=== PATIENT | male | born 1945 | race Caucasian/White ===

== ENCOUNTER 2022-10-10 01:49 | Inpatient (IN) | payer OTHER ==
[2022-10-10] MEDS ORDERED: VANCOMYCIN 1,000 MG in DEXTROSE 5%-WATER - 250 ML IVPB ONE (02:54)
[2022-10-10] MEDS ORDERED: PIPERACILLIN/TAZOB 4.5 GM 4.5 GM in DEXTROSE 5%-WATER 100 ML IVPB ONE (02:54)
[2022-10-10] MEDS ORDERED: VANCOMYCIN 1 GRAM (PRE-DOCKED) 1,000 MG/250 ML BAG IVPB ONE (02:59)
[2022-10-10] MEDS ORDERED: PIPERACILLIN/TAZOB 4.5 GM 4.5 GM/100 ML BAG IVPB ONE (02:59)
[2022-10-10] MEDS ORDERED: ACETAMINOPHEN 500 MG TABLET (FP) PO ONE (03:06)
[2022-10-10] MEDS ORDERED: ACETAMINOPHEN 325 MG TABLET (FP) ONE (03:07)
[2022-10-10 03:14] LABS: BASO % 0.2 % (0-2.0); EOS % 0.9 % (0-4.5); HEMOGLOBIN 11.9 GM/dL (11.7-16.9); MCH 28.2 pg (25.7-33.7); MCHC 33.2 g/dl (32.0-35.9); MEAN PLT VOLUME 8.6 fl (7.5-11.1); MONO % 7.7 % (3.8-10.2); NEUT % 88.2 % (42.8-82.8); PLATELET COUNT 343 10^3/uL (134-434); RBC 4.23 M/mm3 (4.00-5.60); RDW 15.5 % (11.9-15.9); WHITE BLOOD COUNT 15.3 K/mm3 (4.0-10.0)
[2022-10-10 03:27] LABS: INR 1.31 (0.83-1.09); PROTHROMBIN TIME (PATIENT) 15.2 SEC (9.7-13.0)
[2022-10-10 03:29] LABS: CHLORIDE 106 mmol/L (98-107); SODIUM 137 mmol/L (136-145)
[2022-10-10 03:32] LABS: ALBUMIN 2.6 g/dl (3.4-5.0); CALCIUM 9.4 mg/dL (8.5-10.1); CO2 14 mmol/L (21-32); GLUCOSE,RANDOM 74 mg/dL (74-106)
[2022-10-10 03:35] LABS: SGOT/AST 41 U/L (15-37); SGPT/ALT 29 U/L (13-61)
[2022-10-10 03:37] LABS: BILIRUBIN,TOTAL 0.4 mg/dL (0.2-1); TOT PROT 6.5 g/dl (6.4-8.2)
[2022-10-10 03:39] LABS: ALK PHOS 116 U/L (45-117)
[2022-10-10] MEDS ORDERED: FOLIC ACID INJECTION - 1 MG, THIAMINE HCL 100 MG, MULTIVIT INJECTION ADULT 10 ML in SOD... IVPB ONE (04:00)
[2022-10-10 04:33] LABS: ANION GAP 17 MMOL/L (8-16); BLOOD UREA NITROGEN 108.9 mg/dL (7-18); POTASSIUM 7.4 mmol/L (3.5-5.1)
[2022-10-10] MEDS ORDERED: CALCIUM GLUCONATE 10% - 1,000 MG/10 ML VIAL IVPUSH ONE (04:36)
[2022-10-10] MEDS ORDERED: DEXTROSE 50%-WATER - 25 GM/50 ML VIAL IVPUSH ONE (04:36)
[2022-10-10] MEDS ORDERED: INSULIN REGULAR HUMAN 100 UNITS/ML *VIAL IVPUSH ONE (04:37)
[2022-10-10] MEDS ORDERED: DEXTROSE 50%-WATER 25 GM/50 ML DISP.SYRIN ONE (04:46)
[2022-10-10] MEDS ORDERED: CALCIUM GLUCONATE 10% - 1,000 MG/10 ML VIAL ONE (04:46)
[2022-10-10] MEDS ORDERED: SODIUM CHLORIDE 1,000 ML IV STA ×2 (05:43→17:31)
[2022-10-10] MEDS ORDERED: ALBUTEROL SO4 0.083% IH SOL 2.5 MG/3 ML VIAL.NEB. NEB ONE ×2 (05:54→06:12)
[2022-10-10] MEDS ORDERED: SODIUM ZIRCONIUM CYCLOSILICATE (LOKELMA) 10 GM PACKET ONE (05:54)
[2022-10-10] MEDS ORDERED: SODIUM ZIRCONIUM CYCLOSILICATE (LOKELMA) 5 GM PACKET PO SCH (06:00)
[2022-10-10] MEDS: ALBUTEROL SO4 2.5/IPRATROPIUM 0.5 INH SOL 3 ML VIAL.NEB. NEB SCH ×2 (06:10→06:17)
[2022-10-10] MEDS ORDERED: SODIUM CHLORIDE 0.9% 500 ML INFUS.BAG IV ONE (07:01)
[2022-10-10] MEDS ORDERED: SODIUM HYPOCHLORITE 0.5% 473 ML- BULK BOTTLE TP ONE (07:13)
[2022-10-10] MEDS ORDERED: SODIUM BICARBONATE 8.4% 50 MEQ/50 ML DISP.SYRIN IVPUSH ONE (07:16)
[2022-10-10] MEDS ORDERED: SODIUM BICARBONATE 8.4% 50 MEQ/50 ML DISP.SYRIN ONE (07:23)
[2022-10-10 07:55] LABS: VENOUS BASE EXCESS -10.7 mmol/L (-2-2); VENOUS O2 SATURATION 58.6 % (70-80); VENOUS PCO2 34.3 mmHg (38-52); VENOUS PH 7.267 (7.310-7.410)
[2022-10-10 08:23] LABS: CHLORIDE 108 mmol/L (98-107); SODIUM 135 mmol/L (136-145)
[2022-10-10 08:25] LABS: ALBUMIN 2.2 g/dl (3.4-5.0); CALCIUM 8.7 mg/dL (8.5-10.1); CO2 13 mmol/L (21-32); GLUCOSE,RANDOM 64 mg/dL (74-106)
[2022-10-10 08:27] LABS: SGOT/AST 34 U/L (15-37); SGPT/ALT 22 U/L (13-61)
[2022-10-10 08:30] LABS: BILIRUBIN,TOTAL 0.4 mg/dL (0.2-1); TOT PROT 5.5 g/dl (6.4-8.2)
[2022-10-10 08:31] LABS: ALK PHOS 97 U/L (45-117)
[2022-10-10] MEDS ORDERED: FENTANYL CITRATE/PF 50 MCG/ML VIAL ONE (08:31)
[2022-10-10 08:33] LABS: ANION GAP 14 MMOL/L (8-16); BLOOD UREA NITROGEN 107.1 mg/dL (7-18); CREATININE 9.7 mg/dL (0.55-1.3); POTASSIUM 6.4 mmol/L (3.5-5.1)
[2022-10-10] MEDS ORDERED: SODIUM HYPOCHLORITE 0.5% 473 ML- BULK BOTTLE TP SCH (10:00)
[2022-10-10] MEDS: PIPERACILLIN/TAZOB 4.5 GM 4.5 GM in DEXTROSE 5%-WATER 100 ML IVPB SCH ×2 (10:45→21:05)
[2022-10-10 10:51] LABS: EPI CELLS 22 /uL (0-25.1); HYALINE CASTS 1 /uL (0-3.1); URINE APPEARANCE CLOUDY; URINE BACTERIA 17 /uL (0-1359); URINE BILIRUBIN NEGATIVE (NEGATIVE); URINE COLOR DK YELLOW; URINE GLUCOSE (UA) NEGATIVE (NEGATIVE); URINE KETONE TRACE (NEGATIVE); URINE LEUK ESTERASE 1+ (NEGATIVE); URINE NITRITE NEGATIVE (NEGATIVE); URINE PROTEIN 1+ (NEGATIVE); URINE WBC 68 /uL (0-25.8)
[2022-10-10 11:43] LABS: URINE RBC 156.6 /uL (0-23.9); YEAST NEGATIVE (NEGATIVE)
[2022-10-10] MEDS ORDERED: HEPARIN NA (PORCINE) 5,000 UNITS/ML 1ML VIAL IVPUSH PRN ×2 (14:27)
[2022-10-10] MEDS: SODIUM BICARBONATE 8.4% - 50 MEQ in SODIUM CHLORIDE 0.45% 1,000 ML IV SCH ×2 (14:42→21:03)
[2022-10-10] MEDS: NYSTATIN POWDER 100,000 UNITS/GM - 15 GM TOPICAL POWDER TP SCH ×2 (14:43→21:03)
[2022-10-10] MEDS ORDERED: AMIODARONE HCL INJECTION 150 MG in DEXTROSE 5%-WATER - 100 ML IVPB ONE (15:30)
[2022-10-10 15:39] LABS: CHLORIDE 108 mmol/L (98-107); SODIUM 138 mmol/L (136-145)
[2022-10-10 15:41] LABS: CALCIUM 8.8 mg/dL (8.5-10.1); CO2 13 mmol/L (21-32); GLUCOSE,RANDOM 109 mg/dL (74-106); MAGNESIUM 2.4 mg/dL (1.8-2.4)
[2022-10-10] MEDS ORDERED: HYDROmorphone HCl 2 MG/ML VIAL IVPUSH STA (15:41)
[2022-10-10] MEDS ORDERED: AMIODARONE IN DEXTROSE,ISO-OSM 360 MG/200 ML BAG IV SCH (15:45)
[2022-10-10] MEDS ORDERED: AMIODARONE IN DEXTROSE,ISO-OSM 150 MG/100 ML BAG IVPB ONE (15:45)
[2022-10-10 15:48] LABS: ANION GAP 17 MMOL/L (8-16); BLOOD UREA NITROGEN 108.1 mg/dL (7-18)
[2022-10-10] MEDS: HEPARIN INFUSION - 25,000 UNITS/500 ML INFUS.BAG IVPB SCH (16:25)
[2022-10-10] MEDS ORDERED: SODIUM CHLORIDE 250 ML IV PRN (16:48)
[2022-10-10] MEDS: SODIUM ZIRCONIUM CYCLOSILICATE (LOKELMA) 5 GM PACKET PO SCH ×2 (19:22→21:01)
[2022-10-10] MEDS ORDERED: NOREPINEPHRINE BITARTRATE 4,000 MCG in DEXTROSE 5%-WATER - 496 ML IV SCH (20:00)
[2022-10-10] MEDS: AMIODARONE IN DEXTROSE,ISO-OSM 360 MG/200 ML BAG IV SCH (21:01)
[2022-10-10] MEDS ORDERED: PIPERACILLIN/TAZOB 4.5 GM 4.5 GM in DEXTROSE 5%-WATER 100 ML IVPB SCH (22:00)
[2022-10-11] MEDS: SODIUM BICARBONATE 8.4% - 50 MEQ in SODIUM CHLORIDE 0.45% 1,000 ML IV SCH ×4 (05:10→21:19)
[2022-10-11] MEDS: NYSTATIN POWDER 100,000 UNITS/GM - 15 GM TOPICAL POWDER TP SCH ×3 (06:09→21:19)
[2022-10-11 06:54] LABS: HEMATOCRIT 29.8 % (35.4-49); HEMOGLOBIN 10.1 GM/dL (11.7-16.9); MCH 28.9 pg (25.7-33.7); MCHC 33.9 g/dl (32.0-35.9); MEAN CELL VOLUME 85.4 fl (80-96); MEAN PLT VOLUME 9.1 fl (7.5-11.1); PLATELET COUNT 303 10^3/uL (134-434); RBC 3.49 M/mm3 (4.00-5.60); RDW 15.2 % (11.9-15.9)
[2022-10-11 07:18] LABS: POTASSIUM 5.1 mmol/L (3.5-5.1)
[2022-10-11 07:22] LABS: ALBUMIN 1.9 g/dl (3.4-5.0); CALCIUM 8.2 mg/dL (8.5-10.1)
[2022-10-11 07:24] LABS: CREATININE 6.9 mg/dL (0.55-1.3); PHOSPHOROUS 5.8 mg/dL (2.5-4.9)
[2022-10-11 07:26] LABS: BILIRUBIN,TOTAL 0.4 mg/dL (0.2-1); TOT PROT 5.2 g/dl (6.4-8.2)
[2022-10-11 07:56] LABS: BLOOD UREA NITROGEN 68.1 mg/dL (7-18)
[2022-10-11] MEDS: PANTOPRAZOLE SODIUM 40 MG VIAL IVPUSH SCH (09:47)
[2022-10-11] MEDS: NOREPINEPHRINE BITARTRATE/D5W 8 MG/250 ML BAG IVPB SCH (09:47)
[2022-10-11] MEDS: AMIODARONE IN DEXTROSE,ISO-OSM 360 MG/200 ML BAG IV SCH ×2 (09:47→21:22)
[2022-10-11] MEDS: SODIUM ZIRCONIUM CYCLOSILICATE (LOKELMA) 5 GM PACKET PO SCH ×2 (09:47→21:18)
[2022-10-11] MEDS: PIPERACILLIN/TAZOB 4.5 GM 4.5 GM in DEXTROSE 5%-WATER 100 ML IVPB SCH ×2 (09:48→21:18)
[2022-10-11] MEDS: HEPARIN INFUSION - 25,000 UNITS/500 ML INFUS.BAG IVPB SCH (14:42)
[2022-10-11 21:55] LABS: VENOUS BASE EXCESS -1.7 mmol/L (-2-2); VENOUS O2 SATURATION 76.1 % (70-80); VENOUS PCO2 39.5 mmHg (38-52); VENOUS PH 7.386 (7.310-7.410)
[2022-10-11 21:56] LABS: BASO % 0.6 % (0-2.0); EOS % 8.2 % (0-4.5); HEMATOCRIT 27.9 % (35.4-49); HEMOGLOBIN 9.4 GM/dL (11.7-16.9); LYMPH % 7.7 % (8-40); MCH 27.9 pg (25.7-33.7); MCHC 33.5 g/dl (32.0-35.9); MEAN CELL VOLUME 83.4 fl (80-96); MEAN PLT VOLUME 7.8 fl (7.5-11.1); MONO % 10.8 % (3.8-10.2); NEUT % 72.7 % (42.8-82.8); PLATELET COUNT 243 10^3/uL (134-434); RBC 3.35 M/mm3 (4.00-5.60); RDW 15.5 % (11.9-15.9)
[2022-10-11] MEDS ORDERED: SODIUM CHLORIDE 1,000 ML IV SCH (22:00)
[2022-10-11] MEDS ORDERED: ACETAMINOPHEN INJECTION 100 ML IVPB ONE (23:10)
[2022-10-11] MEDS: ACETAMINOPHEN 1000 MG/100 ML BAG IVPB PRN (23:25)
[2022-10-12] MEDS: BUDESONIDE/FORMETEROL FUMARATE 160/4.5 mcg INHALER IH SCH ×3 (02:44→21:48)
[2022-10-12] MEDS: SODIUM BICARBONATE 8.4% - 50 MEQ in SODIUM CHLORIDE 0.45% 1,000 ML IV SCH (07:18)
[2022-10-12] MEDS: NOREPINEPHRINE BITARTRATE/D5W 8 MG/250 ML BAG IVPB SCH (07:18)
[2022-10-12] MEDS: NYSTATIN POWDER 100,000 UNITS/GM - 15 GM TOPICAL POWDER TP SCH ×3 (07:19→21:47)
[2022-10-12] MEDS: SODIUM ZIRCONIUM CYCLOSILICATE (LOKELMA) 5 GM PACKET PO SCH ×2 (07:27→21:47)
[2022-10-12 07:40] LABS: HEMOGLOBIN 9.8 GM/dL (11.7-16.9); MCH 28.3 pg (25.7-33.7); MCHC 33.9 g/dl (32.0-35.9); MEAN CELL VOLUME 83.4 fl (80-96); MEAN PLT VOLUME 8.8 fl (7.5-11.1); PLATELET COUNT 267 10^3/uL (134-434); RBC 3.47 M/mm3 (4.00-5.60); RDW 15.2 % (11.9-15.9); WHITE BLOOD COUNT 11.5 K/mm3 (4.0-10.0)
[2022-10-12 07:55] LABS: INR 1.35 (0.83-1.09); PROTHROMBIN TIME (PATIENT) 15.6 SEC (9.7-13.0)
[2022-10-12 08:10] LABS: POTASSIUM 4.3 mmol/L (3.5-5.1)
[2022-10-12 08:15] LABS: ALBUMIN 1.6 g/dl (3.4-5.0); BLOOD UREA NITROGEN 64.4 mg/dL (7-18); CALCIUM 7.8 mg/dL (8.5-10.1); MAGNESIUM 1.8 mg/dL (1.8-2.4)
[2022-10-12 08:18] LABS: CREATININE 6.7 mg/dL (0.55-1.3)
[2022-10-12 08:20] LABS: BILIRUBIN,TOTAL 0.3 mg/dL (0.2-1); TOT PROT 4.9 g/dl (6.4-8.2)
[2022-10-12] MEDS: MUPIROCIN 2% TOPICAL OINTMENT FOR DECOLONIZATION NS SCH ×2 (09:34→21:46)
[2022-10-12] MEDS: PANTOPRAZOLE SODIUM 40 MG VIAL IVPUSH SCH (09:35)
[2022-10-12] MEDS: ACETAMINOPHEN 1000 MG/100 ML BAG IVPB PRN (09:35)
[2022-10-12] MEDS ORDERED: VANCOMYCIN/WATER FOR INJ (PEG) 1,000 MG/200 ML BAG IVPB ONE (10:42)
[2022-10-12] MEDS ORDERED: SODIUM CHLORIDE 1,000 ML IV SCH (11:45)
[2022-10-12] MEDS: PIPERACILLIN/TAZOB 2.25 GM 2.25 GM in DEXTROSE 5%-WATER - 50 ML IVPB SCH ×2 (11:52→17:49)
[2022-10-12] MEDS: AMIODARONE IN DEXTROSE,ISO-OSM 360 MG/200 ML BAG IV SCH ×2 (11:54→21:47)
[2022-10-12] MEDS: SODIUM CHLORIDE 0.45% 1,000 ML IV SCH (15:50)
[2022-10-12] MEDS: HEPARIN INFUSION - 25,000 UNITS/500 ML INFUS.BAG IVPB SCH (17:51)
[2022-10-12] MEDS ORDERED: CHLORHEXIDINE GLUCONATE 4% CLEANSER FOR DECOLONIZATION TP SCH (22:00)
[2022-10-13] MEDS: PIPERACILLIN/TAZOB 2.25 GM 2.25 GM in DEXTROSE 5%-WATER - 50 ML IVPB SCH ×3 (01:21→17:03)
[2022-10-13] MEDS: AMIODARONE IN DEXTROSE,ISO-OSM 360 MG/200 ML BAG IV SCH (03:24)
[2022-10-13] MEDS: SODIUM CHLORIDE 0.45% 1,000 ML IV SCH ×3 (06:10→21:34)
[2022-10-13] MEDS: NYSTATIN POWDER 100,000 UNITS/GM - 15 GM TOPICAL POWDER TP SCH ×3 (06:34→21:40)
[2022-10-13] MEDS: NOREPINEPHRINE BITARTRATE/D5W 8 MG/250 ML BAG IVPB SCH (06:35)
[2022-10-13 08:02] LABS: POTASSIUM 3.5 mmol/L (3.5-5.1)
[2022-10-13 08:11] LABS: CREATININE 6.2 mg/dL (0.55-1.3); PHOSPHOROUS 6.7 mg/dL (2.5-4.9)
[2022-10-13 08:12] LABS: BILIRUBIN,TOTAL 0.2 mg/dL (0.2-1)
[2022-10-13 08:13] LABS: ALBUMIN 1.6 g/dl (3.4-5.0); MAGNESIUM 1.7 mg/dL (1.8-2.4); TOT PROT 4.7 g/dl (6.4-8.2)
[2022-10-13 08:18] LABS: BASO % 0.5 % (0-2.0); EOS % 7.8 % (0-4.5); HEMATOCRIT 29.1 % (35.4-49); HEMOGLOBIN 9.6 GM/dL (11.7-16.9); LYMPH % 7.1 % (8-40); MCH 28.2 pg (25.7-33.7); MCHC 33.1 g/dl (32.0-35.9); MEAN CELL VOLUME 85.2 fl (80-96); MEAN PLT VOLUME 9.1 fl (7.5-11.1); MONO % 13.5 % (3.8-10.2); NEUT % 71.1 % (42.8-82.8); PLATELET COUNT 247 10^3/uL (134-434); RBC 3.42 M/mm3 (4.00-5.60); RDW 15.4 % (11.9-15.9); WHITE BLOOD COUNT 9.5 K/mm3 (4.0-10.0)
[2022-10-13] MEDS: SODIUM ZIRCONIUM CYCLOSILICATE (LOKELMA) 5 GM PACKET PO SCH ×2 (08:54→21:40)
[2022-10-13] MEDS: PANTOPRAZOLE SODIUM 40 MG VIAL IVPUSH SCH (09:54)
[2022-10-13] MEDS: BUDESONIDE/FORMETEROL FUMARATE 160/4.5 mcg INHALER IH SCH ×2 (10:27→21:40)
[2022-10-13] MEDS: MUPIROCIN 2% TOPICAL OINTMENT FOR DECOLONIZATION NS SCH ×2 (10:27→21:39)
[2022-10-13] MEDS ORDERED: AMIODARONE HCL 200 MG TABLET PO SCH ×2 (10:45→22:00)
[2022-10-13] MEDS ORDERED: VANCOMYCIN/WATER FOR INJ (PEG) 1,000 MG/200 ML BAG IVPB ONE (15:00)
[2022-10-13] MEDS: HEPARIN INFUSION - 25,000 UNITS/500 ML INFUS.BAG IVPB SCH ×2 (15:36→19:30)
[2022-10-13 17:01] LABS: HEMATOCRIT 29.9 % (35.4-49); MCH 28.2 pg (25.7-33.7); MCHC 33.5 g/dl (32.0-35.9); MEAN CELL VOLUME 84.1 fl (80-96); MEAN PLT VOLUME 8.5 fl (7.5-11.1); PLATELET COUNT 263 10^3/uL (134-434); RBC 3.55 M/mm3 (4.00-5.60); RDW 15.4 % (11.9-15.9); WHITE BLOOD COUNT 8.8 K/mm3 (4.0-10.0)
[2022-10-13] MEDS ORDERED: BUPIVACAINE HCL/PF 0.5% (5MG/ML) 10 ML VIAL ONE (17:40)
[2022-10-13] MEDS ORDERED: VANCOMYCIN 1,000 MG VIAL (RESTRICTED TO ID ONLY) ONE (17:41)
[2022-10-13] MEDS ORDERED: PROPOFOL 20 ML ONE (17:52)
[2022-10-13] MEDS ORDERED: MIDAZOLAM HCL 2 MG/2 ML SINGLE DOSE VIAL ONE (17:53)
[2022-10-13] MEDS ORDERED: LIDOCAINE HCL 1%, 10 MG/ML (20ML VIAL) ONE (18:18)
[2022-10-13] MEDS ORDERED: PROPOFOL 40 ML ONE (18:22)
[2022-10-13] MEDS ORDERED: LIDOCAINE HCL 1%, 10 MG/ML (20ML VIAL) INF ONE (18:24)
[2022-10-13] MEDS ORDERED: VANCOMYCIN 1,000 MG VIAL (RESTRICTED TO ID ONLY) IVPB ONE (18:29)
[2022-10-13] MEDS ORDERED: HEPARIN NA (PORCINE) 5,000 UNITS/ML 1ML VIAL IVPUSH PRN (18:50)
[2022-10-13] MEDS ORDERED: PROMETHAZINE HCL 25 MG/1 ML VIAL IVPB PRN (18:55)
[2022-10-13] MEDS ORDERED: ONDANSETRON 4 MG/2 ML VIAL IVPUSH PRN (18:55)
[2022-10-13] MEDS ORDERED: LACTATED RINGERS SOLUTION 1,000 ML IV SCH (19:00)
[2022-10-13] MEDS: HEPARIN NA (PORCINE) 5,000 UNITS/ML 1ML VIAL IVPUSH PRN ×2 (19:30→19:52)
[2022-10-13] MEDS ORDERED: HEPARIN NA (PORCINE) 5,000 UNITS/ML 1ML VIAL ONE (19:43)
[2022-10-13] MEDS ORDERED: HEPARIN INFUSION - 25,000 UNITS/500 ML INFUS.BAG IVPB ONE (19:43)
[2022-10-13] MEDS: COLLAGENASE CLOSTRIDIUM HIST. 30 GRAMS TUBE TP SCH (21:34)
[2022-10-13] MEDS: AMIODARONE HCL 200 MG TABLET PO SCH (21:39)
[2022-10-13] MEDS: CHLORHEXIDINE GLUCONATE 4% CLEANSER FOR DECOLONIZATION TP SCH (21:40)
[2022-10-14] MEDS: PIPERACILLIN/TAZOB 2.25 GM 2.25 GM in DEXTROSE 5%-WATER - 50 ML IVPB SCH ×3 (02:19→18:16)
[2022-10-14 02:37] LABS: INR 1.31 (0.83-1.09); PROTHROMBIN TIME (PATIENT) 15.2 SEC (9.7-13.0)
[2022-10-14 02:40] LABS: ACTIVATED PTT 36.1 SECONDS (25.2-36.5)
[2022-10-14] MEDS: HEPARIN NA (PORCINE) 5,000 UNITS/ML 1ML VIAL IVPUSH PRN (03:00)
[2022-10-14] MEDS: NYSTATIN POWDER 100,000 UNITS/GM - 15 GM TOPICAL POWDER TP SCH ×3 (06:08→22:04)
[2022-10-14 07:29] LABS: HEMATOCRIT 30.2 % (35.4-49); HEMOGLOBIN 10.1 GM/dL (11.7-16.9); MCH 28.5 pg (25.7-33.7); MCHC 33.4 g/dl (32.0-35.9); MEAN CELL VOLUME 85.4 fl (80-96); MEAN PLT VOLUME 8.6 fl (7.5-11.1); PLATELET COUNT 293 10^3/uL (134-434); RBC 3.54 M/mm3 (4.00-5.60); RDW 15.4 % (11.9-15.9); WHITE BLOOD COUNT 8.4 K/mm3 (4.0-10.0)
[2022-10-14] MEDS: MUPIROCIN 2% TOPICAL OINTMENT FOR DECOLONIZATION NS SCH ×2 (10:12→21:30)
[2022-10-14] MEDS: AMIODARONE HCL 200 MG TABLET PO SCH (10:12)
[2022-10-14] MEDS: SODIUM ZIRCONIUM CYCLOSILICATE (LOKELMA) 5 GM PACKET PO SCH (10:13)
[2022-10-14] MEDS: PANTOPRAZOLE SODIUM 40 MG VIAL IVPUSH SCH (10:13)
[2022-10-14] MEDS: COLLAGENASE CLOSTRIDIUM HIST. 30 GRAMS TUBE TP SCH (10:14)
[2022-10-14] MEDS: SODIUM CHLORIDE 0.45% 1,000 ML IV SCH ×2 (10:14→22:02)
[2022-10-14] MEDS: BUDESONIDE/FORMETEROL FUMARATE 160/4.5 mcg INHALER IH SCH ×2 (10:24→22:03)
[2022-10-14 12:35] LABS: POTASSIUM 3.1 mmol/L (3.5-5.1)
[2022-10-14 12:37] LABS: ALBUMIN 1.6 g/dl (3.4-5.0); BLOOD UREA NITROGEN 52.5 mg/dL (7-18); CALCIUM 7.9 mg/dL (8.5-10.1); MAGNESIUM 1.6 mg/dL (1.8-2.4)
[2022-10-14 12:40] LABS: CREATININE 4.9 mg/dL (0.55-1.3)
[2022-10-14 12:42] LABS: BILIRUBIN,TOTAL 0.2 mg/dL (0.2-1); TOT PROT 4.9 g/dl (6.4-8.2)
[2022-10-14] MEDS ORDERED: POTASSIUM CHLORIDE TABS 20 MEQ TABLET.ER (FP) PO ONE (14:45)
[2022-10-14] MEDS ORDERED: MAGNESIUM 2GM/50ML STERILE WATER IVPB IVPB ONE (14:45)
[2022-10-14] MEDS: INSULIN SLIDING SCALE (NOVOLOG) 1 VIAL SQ SCH (18:16)
[2022-10-14] MEDS: HEPARIN INFUSION - 25,000 UNITS/500 ML INFUS.BAG IVPB SCH (18:17)
[2022-10-14] MEDS: WARFARIN NA 5 MG TABLET PO SCH (18:53)
[2022-10-14] MEDS: CHLORHEXIDINE GLUCONATE 4% CLEANSER FOR DECOLONIZATION TP SCH (22:03)
[2022-10-14] MEDS: METOPROLOL TARTRATE 25 MG TABLET (FP) PO SCH (22:03)
[2022-10-15] MEDS: PIPERACILLIN/TAZOB 2.25 GM 2.25 GM in DEXTROSE 5%-WATER - 50 ML IVPB SCH ×3 (01:03→17:28)
[2022-10-15] MEDS: NYSTATIN POWDER 100,000 UNITS/GM - 15 GM TOPICAL POWDER TP SCH ×3 (06:29→21:22)
[2022-10-15] MEDS: INSULIN SLIDING SCALE (NOVOLOG) 1 VIAL SQ SCH ×3 (06:30→16:34)
[2022-10-15 07:22] LABS: INR 1.26 (0.83-1.09); PROTHROMBIN TIME (PATIENT) 14.6 SEC (9.7-13.0)
[2022-10-15 07:25] LABS: ACTIVATED PTT 53.5 SECONDS (25.2-36.5)
[2022-10-15 07:30] LABS: HEMATOCRIT 29.6 % (35.4-49); MCH 28.9 pg (25.7-33.7); MCHC 33.7 g/dl (32.0-35.9); MEAN CELL VOLUME 85.9 fl (80-96); MEAN PLT VOLUME 8.8 fl (7.5-11.1); PLATELET COUNT 297 10^3/uL (134-434); RBC 3.44 M/mm3 (4.00-5.60); RDW 15.5 % (11.9-15.9); WHITE BLOOD COUNT 7.3 K/mm3 (4.0-10.0)
[2022-10-15 07:41] LABS: POTASSIUM 3.2 mmol/L (3.5-5.1)
[2022-10-15 07:43] LABS: ALBUMIN 1.7 g/dl (3.4-5.0); BLOOD UREA NITROGEN 42.6 mg/dL (7-18); MAGNESIUM 1.7 mg/dL (1.8-2.4)
[2022-10-15 07:46] LABS: CREATININE 4.1 mg/dL (0.55-1.3); PHOSPHOROUS 4.4 mg/dL (2.5-4.9)
[2022-10-15 07:48] LABS: BILIRUBIN,TOTAL 0.2 mg/dL (0.2-1)
[2022-10-15] MEDS: PANTOPRAZOLE SODIUM 40 MG VIAL IVPUSH SCH (09:19)
[2022-10-15] MEDS: METOPROLOL TARTRATE 25 MG TABLET (FP) PO SCH ×2 (09:19→21:22)
[2022-10-15] MEDS: BUDESONIDE/FORMETEROL FUMARATE 160/4.5 mcg INHALER IH SCH ×2 (09:20→21:22)
[2022-10-15] MEDS: MUPIROCIN 2% TOPICAL OINTMENT FOR DECOLONIZATION NS SCH ×2 (09:20→21:22)
[2022-10-15] MEDS ORDERED: MAGNESIUM 2GM/50ML STERILE WATER IVPB IVPB ONE (09:59)
[2022-10-15] MEDS ORDERED: AMIODARONE HCL 200 MG TABLET PO SCH ×3 (10:00)
[2022-10-15] MEDS ORDERED: MAGNESIUM OXIDE 400 MG TABLET (FP) PO ONE (10:15)
[2022-10-15] MEDS ORDERED: POTASSIUM CHLORIDE ORAL LIQUID 20 MEQ/15 ML PO ONE ×2 (10:15→15:18)
[2022-10-15] MEDS: SODIUM CHLORIDE 0.45% 1,000 ML IV SCH (10:16)
[2022-10-15] MEDS ORDERED: INSULIN (NOVOLOG) ASPART 100 UNITS/ML 10ML VIAL ONE ×2 (11:09→16:33)
[2022-10-15] MEDS: COLLAGENASE CLOSTRIDIUM HIST. 30 GRAMS TUBE TP SCH (13:49)
[2022-10-15] MEDS: HEPARIN INFUSION - 25,000 UNITS/500 ML INFUS.BAG IVPB SCH ×2 (14:47→20:33)
[2022-10-15] MEDS ORDERED: VANCOMYCIN/WATER FOR INJ (PEG) 1,000 MG/200 ML BAG IVPB ONE (15:09)
[2022-10-15] MEDS: WARFARIN NA 5 MG TABLET PO SCH (17:28)
[2022-10-15] MEDS: CHLORHEXIDINE GLUCONATE 4% CLEANSER FOR DECOLONIZATION TP SCH (21:22)
[2022-10-16] MEDS: PIPERACILLIN/TAZOB 2.25 GM 2.25 GM in DEXTROSE 5%-WATER - 50 ML IVPB SCH ×2 (01:45→09:03)
[2022-10-16] MEDS: NYSTATIN POWDER 100,000 UNITS/GM - 15 GM TOPICAL POWDER TP SCH ×3 (05:49→21:10)
[2022-10-16] MEDS: INSULIN SLIDING SCALE (NOVOLOG) 1 VIAL SQ SCH ×3 (06:05→16:35)
[2022-10-16 07:39] LABS: HEMATOCRIT 29.3 % (35.4-49); MCH 28.9 pg (25.7-33.7); MCHC 34.2 g/dl (32.0-35.9); MEAN CELL VOLUME 84.5 fl (80-96); MEAN PLT VOLUME 8.1 fl (7.5-11.1); PLATELET COUNT 287 10^3/uL (134-434); RBC 3.47 M/mm3 (4.00-5.60); RDW 15.5 % (11.9-15.9); WHITE BLOOD COUNT 8.7 K/mm3 (4.0-10.0)
[2022-10-16 07:43] LABS: INR 1.92 (0.83-1.09); PROTHROMBIN TIME (PATIENT) 22.1 SEC (9.7-13.0)
[2022-10-16 07:44] LABS: ACTIVATED PTT 67.8 SECONDS (25.2-36.5)
[2022-10-16 07:55] LABS: POTASSIUM 3.8 mmol/L (3.5-5.1)
[2022-10-16 08:27] LABS: BILIRUBIN,TOTAL 0.3 mg/dL (0.2-1)
[2022-10-16 08:28] LABS: ALBUMIN 1.8 g/dl (3.4-5.0); BLOOD UREA NITROGEN 34.8 mg/dL (7-18); CALCIUM 8.2 mg/dL (8.5-10.1); MAGNESIUM 1.8 mg/dL (1.8-2.4)
[2022-10-16 08:30] LABS: CREATININE 3.4 mg/dL (0.55-1.3); PHOSPHOROUS 3.6 mg/dL (2.5-4.9)
[2022-10-16 08:31] LABS: TOT PROT 5.2 g/dl (6.4-8.2)
[2022-10-16] MEDS: SODIUM CHLORIDE 0.45% 1,000 ML IV SCH (09:03)
[2022-10-16] MEDS: PANTOPRAZOLE SODIUM 40 MG VIAL IVPUSH SCH (09:03)
[2022-10-16] MEDS: BUDESONIDE/FORMETEROL FUMARATE 160/4.5 mcg INHALER IH SCH ×2 (09:04→21:10)
[2022-10-16] MEDS: MUPIROCIN 2% TOPICAL OINTMENT FOR DECOLONIZATION NS SCH ×2 (09:04→21:10)
[2022-10-16] MEDS: METOPROLOL TARTRATE 25 MG TABLET (FP) PO SCH ×2 (09:04→21:10)
[2022-10-16] MEDS: HEPARIN INFUSION - 25,000 UNITS/500 ML INFUS.BAG IVPB SCH ×2 (10:37→20:43)
[2022-10-16] MEDS: MEROPENEM 1 GM in DEXTROSE 5%-WATER 100 ML IVPB SCH (13:42)
[2022-10-16] MEDS: COLLAGENASE CLOSTRIDIUM HIST. 30 GRAMS TUBE TP SCH (13:42)
[2022-10-16 14:57] VITALS: BMI 38.3
[2022-10-16] MEDS ORDERED: INSULIN (NOVOLOG) ASPART 100 UNITS/ML 10ML VIAL ONE (16:21)
[2022-10-16] MEDS ORDERED: SODIUM THIOSULFATE 12.5 GM/50 ML VIAL IVPB ONE (16:47)
[2022-10-16] MEDS: AMINO ACIDS/PROTEIN HYDROLYS 30 ML LIQUID.PKT PO SCH (17:33)
[2022-10-16] MEDS: WARFARIN NA 5 MG TABLET PO SCH (17:33)
[2022-10-16] MEDS ORDERED: WARFARIN NA 7.5 MG TABLET PO SCH (18:00)
[2022-10-16] MEDS: CHLORHEXIDINE GLUCONATE 4% CLEANSER FOR DECOLONIZATION TP SCH (21:10)
[2022-10-17] MEDS: MEROPENEM 1 GM in DEXTROSE 5%-WATER 100 ML IVPB SCH ×2 (00:35→12:47)
[2022-10-17] MEDS: NYSTATIN POWDER 100,000 UNITS/GM - 15 GM TOPICAL POWDER TP SCH ×3 (06:31→21:17)
[2022-10-17] MEDS: INSULIN SLIDING SCALE (NOVOLOG) 1 VIAL SQ SCH ×3 (06:43→16:45)
[2022-10-17 08:10] LABS: HEMATOCRIT 31.1 % (35.4-49); HEMOGLOBIN 10.1 GM/dL (11.7-16.9); MCH 28.2 pg (25.7-33.7); MCHC 32.6 g/dl (32.0-35.9); MEAN CELL VOLUME 86.6 fl (80-96); MEAN PLT VOLUME 8.5 fl (7.5-11.1); PLATELET COUNT 317 10^3/uL (134-434); RBC 3.59 M/mm3 (4.00-5.60); RDW 15.6 % (11.9-15.9); WHITE BLOOD COUNT 9.2 K/mm3 (4.0-10.0)
[2022-10-17] MEDS: AMINO ACIDS/PROTEIN HYDROLYS 30 ML LIQUID.PKT PO SCH ×2 (08:32→16:45)
[2022-10-17 08:41] LABS: INR 2.32 (0.83-1.09); PROTHROMBIN TIME (PATIENT) 26.7 SEC (9.7-13.0)
[2022-10-17] MEDS: HEPARIN INFUSION - 25,000 UNITS/500 ML INFUS.BAG IVPB SCH (08:45)
[2022-10-17 09:08] LABS: ALBUMIN 1.9 g/dl (3.4-5.0); BILIRUBIN,TOTAL 0.1 mg/dL (0.2-1); BLOOD UREA NITROGEN 30.5 mg/dL (7-18); CALCIUM 8.6 mg/dL (8.5-10.1); CREATININE 2.7 mg/dL (0.55-1.3); POTASSIUM 3.5 mmol/L (3.5-5.1); TOT PROT 5.4 g/dl (6.4-8.2)
[2022-10-17] MEDS: PANTOPRAZOLE SODIUM 40 MG VIAL IVPUSH SCH (09:24)
[2022-10-17] MEDS: METOPROLOL TARTRATE 25 MG TABLET (FP) PO SCH ×2 (09:24→21:17)
[2022-10-17] MEDS: BUDESONIDE/FORMETEROL FUMARATE 160/4.5 mcg INHALER IH SCH ×2 (09:24→21:17)
[2022-10-17] MEDS: SODIUM CHLORIDE 0.45% 1,000 ML IV SCH (09:25)
[2022-10-17] MEDS: COLLAGENASE CLOSTRIDIUM HIST. 30 GRAMS TUBE TP SCH (10:29)
[2022-10-17] MEDS ORDERED: INSULIN (NOVOLOG) ASPART 100 UNITS/ML 10ML VIAL ONE ×2 (11:11→16:32)
[2022-10-17] MEDS: WARFARIN NA 5 MG TABLET PO SCH (17:01)
[2022-10-17] MEDS: CHLORHEXIDINE GLUCONATE 4% CLEANSER FOR DECOLONIZATION TP SCH (21:17)
[2022-10-18] MEDS: MEROPENEM 1 GM in DEXTROSE 5%-WATER 100 ML IVPB SCH ×2 (01:27→12:23)
[2022-10-18] MEDS: SODIUM CHLORIDE 0.45% 1,000 ML IV SCH ×3 (01:32→17:39)
[2022-10-18] MEDS: INSULIN SLIDING SCALE (NOVOLOG) 1 VIAL SQ SCH ×3 (06:09→17:26)
[2022-10-18] MEDS: NYSTATIN POWDER 100,000 UNITS/GM - 15 GM TOPICAL POWDER TP SCH ×2 (06:09→13:01)
[2022-10-18 07:43] LABS: HEMOGLOBIN 9.6 GM/dL (11.7-16.9); MCH 28.4 pg (25.7-33.7); MCHC 33.3 g/dl (32.0-35.9); MEAN CELL VOLUME 85.4 fl (80-96); MEAN PLT VOLUME 7.4 fl (7.5-11.1); PLATELET COUNT 289 10^3/uL (134-434); RBC 3.39 M/mm3 (4.00-5.60); RDW 15.7 % (11.9-15.9); WHITE BLOOD COUNT 8.5 K/mm3 (4.0-10.0)
[2022-10-18 07:51] LABS: INR 1.99 (0.83-1.09); PROTHROMBIN TIME (PATIENT) 22.9 SEC (9.7-13.0)
[2022-10-18 07:59] LABS: POTASSIUM 3.5 mmol/L (3.5-5.1)
[2022-10-18 08:08] LABS: ALBUMIN 1.8 g/dl (3.4-5.0); BLOOD UREA NITROGEN 27.3 mg/dL (7-18); CALCIUM 8.3 mg/dL (8.5-10.1)
[2022-10-18 08:09] LABS: MAGNESIUM 1.5 mg/dL (1.8-2.4)
[2022-10-18 08:11] LABS: CREATININE 2.1 mg/dL (0.55-1.3); PHOSPHOROUS 3.9 mg/dL (2.5-4.9)
[2022-10-18 08:13] LABS: BILIRUBIN,TOTAL 0.2 mg/dL (0.2-1); TOT PROT 5.1 g/dl (6.4-8.2)
[2022-10-18] MEDS: BUDESONIDE/FORMETEROL FUMARATE 160/4.5 mcg INHALER IH SCH ×2 (09:25→22:41)
[2022-10-18] MEDS: AMINO ACIDS/PROTEIN HYDROLYS 30 ML LIQUID.PKT PO SCH ×2 (09:25→17:58)
[2022-10-18] MEDS: PANTOPRAZOLE SODIUM 40 MG VIAL IVPUSH SCH (09:25)
[2022-10-18] MEDS: METOPROLOL TARTRATE 25 MG TABLET (FP) PO SCH ×2 (09:25→22:38)
[2022-10-18] MEDS ORDERED: INSULIN (NOVOLOG) ASPART 100 UNITS/ML 10ML VIAL ONE (10:43)
[2022-10-18] MEDS: COLLAGENASE CLOSTRIDIUM HIST. 30 GRAMS TUBE TP SCH (10:44)
[2022-10-18] MEDS ORDERED: MAGNESIUM OXIDE 400 MG TABLET (FP) PO ONE (12:15)
[2022-10-18] MEDS: WARFARIN NA 5 MG TABLET PO SCH (17:58)
[2022-10-19] MEDS: MEROPENEM 1 GM in DEXTROSE 5%-WATER 100 ML IVPB SCH ×2 (01:18→12:44)
[2022-10-19] MEDS: NYSTATIN POWDER 100,000 UNITS/GM - 15 GM TOPICAL POWDER TP SCH ×4 (01:18→22:40)
[2022-10-19] MEDS: INSULIN SLIDING SCALE (NOVOLOG) 1 VIAL SQ SCH ×4 (06:32→16:30)
[2022-10-19] MEDS: AMINO ACIDS/PROTEIN HYDROLYS 30 ML LIQUID.PKT PO SCH ×2 (08:29→16:44)
[2022-10-19] MEDS: METOPROLOL TARTRATE 25 MG TABLET (FP) PO SCH ×2 (09:15→22:00)
[2022-10-19] MEDS: PANTOPRAZOLE SODIUM 40 MG VIAL IVPUSH SCH (09:16)
[2022-10-19] MEDS: SODIUM CHLORIDE 0.45% 1,000 ML IV SCH ×3 (09:17→13:15)
[2022-10-19] MEDS: BUDESONIDE/FORMETEROL FUMARATE 160/4.5 mcg INHALER IH SCH ×2 (09:22→22:01)
[2022-10-19] MEDS: COLLAGENASE CLOSTRIDIUM HIST. 30 GRAMS TUBE TP SCH (09:22)
[2022-10-19 10:32] LABS: HEMOGLOBIN 10.4 GM/dL (11.7-16.9); MCH 28.9 pg (25.7-33.7); MCHC 33.6 g/dl (32.0-35.9); MEAN CELL VOLUME 86.1 fl (80-96); MEAN PLT VOLUME 7.7 fl (7.5-11.1); PLATELET COUNT 310 10^3/uL (134-434); RDW 15.7 % (11.9-15.9); WHITE BLOOD COUNT 9.8 K/mm3 (4.0-10.0)
[2022-10-19 10:34] LABS: INR 1.82 (0.83-1.09)
[2022-10-19 10:36] LABS: ACTIVATED PTT 35.5 SECONDS (25.2-36.5)
[2022-10-19 10:52] LABS: POTASSIUM 3.5 mmol/L (3.5-5.1)
[2022-10-19 10:58] LABS: CALCIUM 8.5 mg/dL (8.5-10.1)
[2022-10-19 10:59] LABS: BLOOD UREA NITROGEN 29.8 mg/dL (7-18); MAGNESIUM 1.7 mg/dL (1.8-2.4)
[2022-10-19 11:01] LABS: PHOSPHOROUS 3.4 mg/dL (2.5-4.9)
[2022-10-19 11:02] LABS: CREATININE 1.8 mg/dL (0.55-1.3)
[2022-10-19] MEDS ORDERED: MAGNESIUM OXIDE 400 MG TABLET (FP) PO ONE (13:15)
[2022-10-19] MEDS ORDERED: POTASSIUM CHLORIDE ORAL LIQUID 20 MEQ/15 ML PO ONE (13:15)
[2022-10-19] MEDS ORDERED: SODIUM THIOSULFATE 12.5 GM/50 ML VIAL IVPB ONE (14:00)
[2022-10-19] MEDS: WARFARIN NA 5 MG TABLET PO SCH (17:27)
[2022-10-20] MEDS: MEROPENEM 1 GM in DEXTROSE 5%-WATER 100 ML IVPB SCH ×2 (00:57→12:29)
[2022-10-20] MEDS: NYSTATIN POWDER 100,000 UNITS/GM - 15 GM TOPICAL POWDER TP SCH ×3 (05:54→21:26)
[2022-10-20] MEDS: INSULIN SLIDING SCALE (NOVOLOG) 1 VIAL SQ SCH ×3 (06:17→16:23)
[2022-10-20] MEDS: AMINO ACIDS/PROTEIN HYDROLYS 30 ML LIQUID.PKT PO SCH ×2 (09:07→16:34)
[2022-10-20] MEDS: METOPROLOL TARTRATE 25 MG TABLET (FP) PO SCH ×2 (09:08→21:22)
[2022-10-20] MEDS: PANTOPRAZOLE SODIUM 40 MG VIAL IVPUSH SCH (09:19)
[2022-10-20] MEDS: BUDESONIDE/FORMETEROL FUMARATE 160/4.5 mcg INHALER IH SCH ×2 (09:19→21:25)
[2022-10-20 09:42] LABS: INR 1.95 (0.83-1.09); PROTHROMBIN TIME (PATIENT) 22.5 SEC (9.7-13.0)
[2022-10-20 09:44] LABS: BASO % 0.4 % (0-2.0); HEMATOCRIT 31.1 % (35.4-49); LYMPH % 10.1 % (8-40); MEAN CELL VOLUME 87.4 fl (80-96); MEAN PLT VOLUME 8.3 fl (7.5-11.1); MONO % 11.6 % (3.8-10.2); NEUT % 73.9 % (42.8-82.8); PLATELET COUNT 325 10^3/uL (134-434); RBC 3.56 M/mm3 (4.00-5.60); RDW 15.4 % (11.9-15.9); WHITE BLOOD COUNT 10.1 K/mm3 (4.0-10.0)
[2022-10-20 09:52] LABS: POTASSIUM 3.6 mmol/L (3.5-5.1)
[2022-10-20 10:02] LABS: CREATININE 1.5 mg/dL (0.55-1.3); PHOSPHOROUS 3.1 mg/dL (2.5-4.9)
[2022-10-20 10:03] LABS: BILIRUBIN,TOTAL 0.3 mg/dL (0.2-1); BLOOD UREA NITROGEN 26.5 mg/dL (7-18); CALCIUM 8.3 mg/dL (8.5-10.1); MAGNESIUM 1.6 mg/dL (1.8-2.4)
[2022-10-20 10:04] LABS: ALBUMIN 1.9 g/dl (3.4-5.0); TOT PROT 5.5 g/dl (6.4-8.2)
[2022-10-20] MEDS: COLLAGENASE CLOSTRIDIUM HIST. 30 GRAMS TUBE TP SCH (11:13)
[2022-10-20] MEDS ORDERED: MAGNESIUM 2GM/50ML STERILE WATER IVPB IVPB ONE (14:00)
[2022-10-20] MEDS: SODIUM CHLORIDE 0.45% 1,000 ML IV SCH (14:05)
[2022-10-20] MEDS: oxyCODONE HCL 5 MG TABLET PO PRN (14:53)
[2022-10-20] MEDS: WARFARIN NA 5 MG TABLET PO SCH (18:06)
[2022-10-21] MEDS: MEROPENEM 1 GM in DEXTROSE 5%-WATER 100 ML IVPB SCH ×2 (01:00→13:52)
[2022-10-21] MEDS: NYSTATIN POWDER 100,000 UNITS/GM - 15 GM TOPICAL POWDER TP SCH ×3 (06:24→22:31)
[2022-10-21] MEDS: INSULIN SLIDING SCALE (NOVOLOG) 1 VIAL SQ SCH ×3 (06:24→16:46)
[2022-10-21] MEDS: AMINO ACIDS/PROTEIN HYDROLYS 30 ML LIQUID.PKT PO SCH ×2 (08:51→16:46)
[2022-10-21 10:02] LABS: BASO % 0.7 % (0-2.0); EOS % 2.5 % (0-4.5); HEMATOCRIT 29.1 % (35.4-49); HEMOGLOBIN 9.7 GM/dL (11.7-16.9); LYMPH % 8.7 % (8-40); MCH 28.4 pg (25.7-33.7); MCHC 33.4 g/dl (32.0-35.9); MEAN PLT VOLUME 8.1 fl (7.5-11.1); MONO % 9.9 % (3.8-10.2); NEUT % 78.2 % (42.8-82.8); PLATELET COUNT 309 10^3/uL (134-434); RBC 3.42 M/mm3 (4.00-5.60); RDW 15.8 % (11.9-15.9); WHITE BLOOD COUNT 10.2 K/mm3 (4.0-10.0)
[2022-10-21 10:23] LABS: POTASSIUM 3.4 mmol/L (3.5-5.1)
[2022-10-21 10:26] LABS: CALCIUM 8.8 mg/dL (8.5-10.1)
[2022-10-21 10:27] LABS: BLOOD UREA NITROGEN 23.4 mg/dL (7-18); MAGNESIUM 1.9 mg/dL (1.8-2.4)
[2022-10-21 10:30] LABS: CREATININE 1.4 mg/dL (0.55-1.3); PHOSPHOROUS 3.7 mg/dL (2.5-4.9)
[2022-10-21] MEDS: oxyCODONE HCL 5 MG TABLET PO PRN ×2 (10:45→16:44)
[2022-10-21] MEDS: PANTOPRAZOLE SODIUM 40 MG VIAL IVPUSH SCH (10:47)
[2022-10-21] MEDS: METOPROLOL TARTRATE 25 MG TABLET (FP) PO SCH ×2 (10:47→22:30)
[2022-10-21] MEDS ORDERED: INSULIN (NOVOLOG) ASPART 100 UNITS/ML 10ML VIAL ONE ×2 (11:55→16:41)
[2022-10-21 11:56] LABS: INR 3.29 (0.83-1.09); PROTHROMBIN TIME (PATIENT) 37.7 SEC (9.7-13.0)
[2022-10-21] MEDS: BUDESONIDE/FORMETEROL FUMARATE 160/4.5 mcg INHALER IH SCH ×2 (11:59→22:31)
[2022-10-21] MEDS: COLLAGENASE CLOSTRIDIUM HIST. 30 GRAMS TUBE TP SCH (12:00)
[2022-10-21] MEDS ORDERED: POTASSIUM CHLORIDE TABS 20 MEQ TABLET.ER (FP) PO ONE (13:08)
[2022-10-21] MEDS: WARFARIN NA 5 MG TABLET PO SCH (18:48)
[2022-10-22] MEDS: oxyCODONE HCL 5 MG TABLET PO PRN ×3 (01:22→14:21)
[2022-10-22] MEDS: NYSTATIN POWDER 100,000 UNITS/GM - 15 GM TOPICAL POWDER TP SCH ×3 (06:57→23:22)
[2022-10-22] MEDS: INSULIN SLIDING SCALE (NOVOLOG) 1 VIAL SQ SCH ×3 (07:00→16:45)
[2022-10-22] MEDS: METOPROLOL TARTRATE 25 MG TABLET (FP) PO SCH ×2 (09:23→23:23)
[2022-10-22] MEDS: AMINO ACIDS/PROTEIN HYDROLYS 30 ML LIQUID.PKT PO SCH ×2 (09:25→16:41)
[2022-10-22] MEDS: PANTOPRAZOLE SODIUM 40 MG VIAL IVPUSH SCH (09:44)
[2022-10-22 11:09] LABS: HEMATOCRIT 31.1 % (35.4-49); HEMOGLOBIN 10.2 GM/dL (11.7-16.9); MCH 28.6 pg (25.7-33.7); MCHC 32.7 g/dl (32.0-35.9); MEAN CELL VOLUME 87.6 fl (80-96); MEAN PLT VOLUME 8.8 fl (7.5-11.1); PLATELET COUNT 350 10^3/uL (134-434); RBC 3.55 M/mm3 (4.00-5.60); RDW 15.8 % (11.9-15.9); WHITE BLOOD COUNT 8.7 K/mm3 (4.0-10.0)
[2022-10-22 11:12] LABS: INR 2.39 (0.83-1.09); PROTHROMBIN TIME (PATIENT) 27.5 SEC (9.7-13.0)
[2022-10-22 11:36] LABS: POTASSIUM 3.9 mmol/L (3.5-5.1)
[2022-10-22 11:58] LABS: CALCIUM 8.5 mg/dL (8.5-10.1)
[2022-10-22 11:59] LABS: BLOOD UREA NITROGEN 23.1 mg/dL (7-18)
[2022-10-22 12:02] LABS: CREATININE 1.4 mg/dL (0.55-1.3)
[2022-10-22 12:03] LABS: MAGNESIUM 1.9 mg/dL (1.8-2.4)
[2022-10-22] MEDS: BUDESONIDE/FORMETEROL FUMARATE 160/4.5 mcg INHALER IH SCH ×2 (12:03→23:23)
[2022-10-22] MEDS: COLLAGENASE CLOSTRIDIUM HIST. 30 GRAMS TUBE TP SCH (14:23)
[2022-10-22] MEDS: DOCUSATE SODIUM 100 MG CAPSULE (FP) PO PRN (15:39)
[2022-10-23] MEDS: NYSTATIN POWDER 100,000 UNITS/GM - 15 GM TOPICAL POWDER TP SCH ×3 (07:14→21:17)
[2022-10-23] MEDS: INSULIN SLIDING SCALE (NOVOLOG) 1 VIAL SQ SCH ×3 (07:16→16:26)
[2022-10-23] MEDS: AMINO ACIDS/PROTEIN HYDROLYS 30 ML LIQUID.PKT PO SCH ×2 (08:37→17:44)
[2022-10-23] MEDS: PANTOPRAZOLE 40 MG TABLET PO SCH (09:34)
[2022-10-23] MEDS: METOPROLOL TARTRATE 25 MG TABLET (FP) PO SCH ×2 (09:34→21:17)
[2022-10-23] MEDS: BUDESONIDE/FORMETEROL FUMARATE 160/4.5 mcg INHALER IH SCH ×2 (09:35→21:17)
[2022-10-23 12:55] LABS: HEMATOCRIT 31.4 % (35.4-49); HEMOGLOBIN 10.5 GM/dL (11.7-16.9); MCH 28.6 pg (25.7-33.7); MCHC 33.3 g/dl (32.0-35.9); MEAN CELL VOLUME 85.7 fl (80-96); MEAN PLT VOLUME 7.9 fl (7.5-11.1); PLATELET COUNT 376 10^3/uL (134-434); RBC 3.67 M/mm3 (4.00-5.60); RDW 15.8 % (11.9-15.9); WHITE BLOOD COUNT 7.9 K/mm3 (4.0-10.0)
[2022-10-23 13:01] LABS: INR 2.15 (0.83-1.09); PROTHROMBIN TIME (PATIENT) 24.8 SEC (9.7-13.0)
[2022-10-23 13:29] LABS: MAGNESIUM 1.8 mg/dL (1.8-2.4)
[2022-10-23 13:33] LABS: PHOSPHOROUS 2.7 mg/dL (2.5-4.9)
[2022-10-23] MEDS: oxyCODONE HCL 5 MG TABLET PO PRN (14:02)
[2022-10-23] MEDS: COLLAGENASE CLOSTRIDIUM HIST. 30 GRAMS TUBE TP SCH (14:04)
[2022-10-23] MEDS ORDERED: SODIUM THIOSULFATE 12.5 GM/50 ML VIAL IVPB ONE (16:18)
[2022-10-23] MEDS ORDERED: SODIUM THIOSULFATE 100 ML IVPB ONE (16:45)
[2022-10-23] MEDS: WARFARIN NA 5 MG TABLET PO SCH (17:45)
[2022-10-24] MEDS: NYSTATIN POWDER 100,000 UNITS/GM - 15 GM TOPICAL POWDER TP SCH ×3 (06:11→21:27)
[2022-10-24] MEDS: INSULIN SLIDING SCALE (NOVOLOG) 1 VIAL SQ SCH ×3 (06:12→17:11)
[2022-10-24] MEDS: AMINO ACIDS/PROTEIN HYDROLYS 30 ML LIQUID.PKT PO SCH ×2 (08:33→17:13)
[2022-10-24] MEDS ORDERED: FUROSEMIDE 40 MG/4 ML INJECTABLE VIAL IVPUSH ONE ×3 (09:31→16:22)
[2022-10-24 10:08] LABS: INR 2.01 (0.83-1.09); PROTHROMBIN TIME (PATIENT) 23.2 SEC (9.7-13.0)
[2022-10-24 10:15] LABS: HEMATOCRIT 33.1 % (35.4-49); HEMOGLOBIN 11.1 GM/dL (11.7-16.9); MCH 28.4 pg (25.7-33.7); MCHC 33.5 g/dl (32.0-35.9); MEAN CELL VOLUME 84.6 fl (80-96); MEAN PLT VOLUME 8.3 fl (7.5-11.1); PLATELET COUNT 459 10^3/uL (134-434); RBC 3.91 M/mm3 (4.00-5.60); RDW 15.7 % (11.9-15.9); WHITE BLOOD COUNT 9.8 K/mm3 (4.0-10.0)
[2022-10-24] MEDS: METOPROLOL TARTRATE 25 MG TABLET (FP) PO SCH ×2 (10:33→21:27)
[2022-10-24] MEDS: PANTOPRAZOLE 40 MG TABLET PO SCH (10:33)
[2022-10-24 10:34] LABS: POTASSIUM 4.1 mmol/L (3.5-5.1)
[2022-10-24] MEDS: BUDESONIDE/FORMETEROL FUMARATE 160/4.5 mcg INHALER IH SCH ×2 (10:40→21:27)
[2022-10-24 10:44] LABS: CALCIUM 8.8 mg/dL (8.5-10.1)
[2022-10-24 10:45] LABS: BLOOD UREA NITROGEN 20.5 mg/dL (7-18)
[2022-10-24 10:47] LABS: CREATININE 1.1 mg/dL (0.55-1.3)
[2022-10-24] MEDS: oxyCODONE HCL 5 MG TABLET PO PRN (11:07)
[2022-10-24] MEDS: COLLAGENASE CLOSTRIDIUM HIST. 30 GRAMS TUBE TP SCH (12:20)
[2022-10-24 16:56] LABS: ARTERIAL BLOOD GAS BASE EXCESS 0.3 mmol/L (-2-2); ARTERIAL BLOOD GAS PO2 75.6 mmHg (80-100); ARTERIAL BLOOD GAS pH 7.327 (7.350-7.450)
[2022-10-24 17:03] LABS: ALLENS TEST POSITIVE
[2022-10-24] MEDS: WARFARIN NA 5 MG TABLET PO SCH (17:14)
[2022-10-24] MEDS: oxyCODONE HCL 5 MG TABLET PO SCH (21:26)
[2022-10-25 00:28] LABS: ALLENS TEST POSITIVE; ARTERIAL BLOOD GAS BASE EXCESS -0.2 mmol/L (-2-2); ARTERIAL BLOOD GAS PO2 68.3 mmHg (80-100); ARTERIAL BLOOD GAS pH 7.321 (7.350-7.450)
[2022-10-25] MEDS: NYSTATIN POWDER 100,000 UNITS/GM - 15 GM TOPICAL POWDER TP SCH ×3 (05:46→21:22)
[2022-10-25] MEDS: INSULIN SLIDING SCALE (NOVOLOG) 1 VIAL SQ SCH ×3 (06:05→17:03)
[2022-10-25] MEDS: AMINO ACIDS/PROTEIN HYDROLYS 30 ML LIQUID.PKT PO SCH ×2 (08:22→17:07)
[2022-10-25] MEDS: METOPROLOL TARTRATE 25 MG TABLET (FP) PO SCH ×2 (09:38→21:22)
[2022-10-25] MEDS: PANTOPRAZOLE 40 MG TABLET PO SCH (09:38)
[2022-10-25] MEDS ORDERED: INSULIN (NOVOLOG) ASPART 100 UNITS/ML 10ML VIAL ONE (09:38)
[2022-10-25] MEDS: oxyCODONE HCL 5 MG TABLET PO SCH (09:39)
[2022-10-25] MEDS: BUDESONIDE/FORMETEROL FUMARATE 160/4.5 mcg INHALER IH SCH ×2 (09:40→21:22)
[2022-10-25 10:12] LABS: INR 3.82 (0.83-1.09); PROTHROMBIN TIME (PATIENT) 43.7 SEC (9.7-13.0)
[2022-10-25 10:19] LABS: HEMOGLOBIN 10.7 GM/dL (11.7-16.9); MCH 28.1 pg (25.7-33.7); MCHC 32.5 g/dl (32.0-35.9); MEAN CELL VOLUME 86.6 fl (80-96); MEAN PLT VOLUME 8.7 fl (7.5-11.1); PLATELET COUNT 456 10^3/uL (134-434); RBC 3.81 M/mm3 (4.00-5.60); RDW 15.7 % (11.9-15.9); WHITE BLOOD COUNT 7.1 K/mm3 (4.0-10.0)
[2022-10-25 10:27] LABS: POTASSIUM 3.7 mmol/L (3.5-5.1)
[2022-10-25 10:39] LABS: BLOOD UREA NITROGEN 20.7 mg/dL (7-18)
[2022-10-25 10:42] LABS: CREATININE 1.2 mg/dL (0.55-1.3)
[2022-10-25 10:43] LABS: MAGNESIUM 1.6 mg/dL (1.8-2.4)
[2022-10-25] MEDS: COLLAGENASE CLOSTRIDIUM HIST. 30 GRAMS TUBE TP SCH (10:57)
[2022-10-25] MEDS ORDERED: oxyCODONE HCL 5 MG TABLET PO PRN (13:29)
[2022-10-25 22:22] VITALS: RESP 18
[2022-10-26] MEDS ORDERED: INSULIN (NOVOLOG) ASPART 100 UNITS/ML 10ML VIAL ONE ×2 (06:03→16:57)
[2022-10-26] MEDS: NYSTATIN POWDER 100,000 UNITS/GM - 15 GM TOPICAL POWDER TP SCH ×3 (06:35→22:21)
[2022-10-26] MEDS: INSULIN SLIDING SCALE (NOVOLOG) 1 VIAL SQ SCH ×3 (06:35→16:59)
[2022-10-26] MEDS: PANTOPRAZOLE 40 MG TABLET PO SCH (09:10)
[2022-10-26] MEDS: METOPROLOL TARTRATE 25 MG TABLET (FP) PO SCH ×2 (09:10→22:21)
[2022-10-26] MEDS: AMINO ACIDS/PROTEIN HYDROLYS 30 ML LIQUID.PKT PO SCH ×2 (09:10→16:59)
[2022-10-26] MEDS: BUDESONIDE/FORMETEROL FUMARATE 160/4.5 mcg INHALER IH SCH ×2 (09:14→22:21)
[2022-10-26] MEDS: COLLAGENASE CLOSTRIDIUM HIST. 30 GRAMS TUBE TP SCH (09:14)
[2022-10-26 10:28] LABS: INR 2.63 (0.83-1.09); PROTHROMBIN TIME (PATIENT) 30.2 SEC (9.7-13.0)
[2022-10-26 10:39] LABS: POTASSIUM 3.6 mmol/L (3.5-5.1)
[2022-10-26 10:41] LABS: BLOOD UREA NITROGEN 22.9 mg/dL (7-18); CALCIUM 8.4 mg/dL (8.5-10.1); MAGNESIUM 1.7 mg/dL (1.8-2.4)
[2022-10-26 10:45] LABS: CREATININE 1.2 mg/dL (0.55-1.3)
[2022-10-26] MEDS ORDERED: MAGNESIUM 1GM/D5W - 1 GM/100 ML IVPB IVPB ONE (14:20)
[2022-10-26] MEDS ORDERED: SODIUM THIOSULFATE 12.5 GM/50 ML VIAL IVPB ONE (16:16)
[2022-10-26] MEDS: DOCUSATE SODIUM 100 MG CAPSULE (FP) PO PRN (16:44)
[2022-10-26] MEDS ORDERED: SODIUM THIOSULFATE 100 ML IVPB ONE (16:45)
[2022-10-27 04:46] VITALS: BP 140/58; PULSE 66; TEMP 97
== END 2022-10-27 05:10 | DRG 853 ==
LOC: JER 01:49 → JERBED 07:04 → JICU 08:52 → J2W 10-14 05:49 → J6S 10-18 17:03
PROVIDERS: ADMIT Internal Medicine Pulmonary Disease; ATTEND Internal Medicine
PROC: 05HM33Z Insertion of Infusion Device into Right Internal Jugular Vein, Percutaneous Approach (ICD-10-PCS; principal; 2022-10-11)
PROC: B543ZZA Ultrasonography of Right Jugular Veins, Guidance (ICD-10-PCS; 2022-10-11)
PROC: 0JBP0ZZ Excision of Left Lower Leg Subcutaneous Tissue and Fascia, Open Approach (ICD-10-PCS; 2022-10-13)
DX: A41.89 Other specified sepsis (principal); I50.33 Acute on chronic diastolic (congestive) heart failure; J96.01 Acute respiratory failure with hypoxia; N17.0 Acute kidney failure with tubular necrosis; R65.21 Severe sepsis with septic shock; I48.19 Other persistent atrial fibrillation; L03.115 Cellulitis of right lower limb; L03.116 Cellulitis of left lower limb; I24.8 Other forms of acute ischemic heart disease; N39.0 Urinary tract infection, site not specified; L97.828 Non-pressure chronic ulcer of other part of left lower leg with other specified severity; E11.52 Type 2 diabetes mellitus with diabetic peripheral angiopathy with gangrene; I96 Gangrene, not elsewhere classified; E11.9 Type 2 diabetes mellitus without complications; E86.0 Dehydration; E87.5 Hyperkalemia; I08.0 Rheumatic disorders of both mitral and aortic valves; B87.89 Myiasis of other sites; E66.8 Other obesity; Z68.38 Body mass index [BMI] 38.0-38.9, adult; E11.622 Type 2 diabetes mellitus with other skin ulcer; G47.33 Obstructive sleep apnea (adult) (pediatric); I27.20 Pulmonary hypertension, unspecified; I11.0 Hypertensive heart disease with heart failure; E11.65 Type 2 diabetes mellitus with hyperglycemia; D64.9 Anemia, unspecified
CPT/HCPCS: 0241U-QW; 36415; 36600; 71045-TC-FY; 73590-TC-RT-FY; 73700-TC-RT; 76775-TC; 76856-TC; 80048; 80053; 81003; 82272; 82310; 82550; 82553; 82570; 82803; 82962; 83036; 83690; 83735; 83970; 84100; 84300; 84484; 85025; 85027; 85610; 85651; 85730; 86140; 86704; 86705; 86803; 86850; 86900; 86901; 87040; 87070; 87086; 87186; 87205; 87340; 93005; 93010; 93306-TC; 93925-TC; 93970-TC; 94010; 94660; 94760; 97116-GP; 97162-GP; 99285-25; G0480; J0282; J1644

== ENCOUNTER 2023-04-30 13:18 | Inpatient (IN) | payer OTHER ==
[2023-04-30] MEDS ORDERED: ACETAMINOPHEN INJECTION 100 ML IVPB ONE (15:32)
[2023-04-30] MEDS: SODIUM CHLORIDE 0.9% 500 ML INFUS.BAG IV ONE ×2 (15:39→19:01)
[2023-04-30] MEDS: ACETAMINOPHEN 1000 MG/100 ML BAG IVPB ONE (15:40)
[2023-04-30 15:46] LABS: BASO % 0.3 % (0-2.0); EOS % 0.1 % (0-4.5); HEMATOCRIT 36.3 % (35.4-49); HEMOGLOBIN 11.9 GM/dL (11.7-16.9); LYMPH % 6.3 % (8-40); MCH 28.2 pg (25.7-33.7); MCHC 32.8 g/dl (32.0-35.9); MEAN PLT VOLUME 9.5 fl (7.5-11.1); MONO % 8.5 % (3.8-10.2); NEUT % 84.8 % (42.8-82.8); PLATELET COUNT 275 10^3/uL (134-434); RBC 4.22 M/mm3 (4.00-5.60); RDW 18.4 % (11.9-15.9); VENOUS BASE EXCESS 2.2 mmol/L (-2-2); VENOUS O2 SATURATION 40.9 % (70-80); VENOUS PH 7.364 (7.310-7.410); WHITE BLOOD COUNT 11.1 K/mm3 (4.0-10.0)
[2023-04-30 15:54] LABS: INR 1.65 (0.83-1.09)
[2023-04-30 15:57] LABS: ACTIVATED PTT 29.8 SECONDS (25.2-36.5)
[2023-04-30 16:09] LABS: CHLORIDE 101 mmol/L (98-107); GLUCOSE,RANDOM 175 mg/dL (74-106); SODIUM 141 mmol/L (136-145)
[2023-04-30 16:10] LABS: ALBUMIN 2.6 g/dl (3.4-5.0); ANION GAP 9 mmol/L (4-13); BLOOD UREA NITROGEN 25.2 mg/dL (7-18); CO2 31 mmol/L (21-32); MAGNESIUM 1.2 mg/dL (1.8-2.4)
[2023-04-30 16:14] LABS: CREATININE 1.7 mg/dL (0.55-1.3); PHOSPHOROUS 3.3 mg/dL (2.5-4.9); SGOT/AST 21 U/L (15-37); SGPT/ALT 17 U/L (13-61)
[2023-04-30 16:15] LABS: BILIRUBIN,TOTAL 0.8 mg/dL (0.2-1); TOT PROT 7.3 g/dl (6.4-8.2)
[2023-04-30 16:17] LABS: ALK PHOS 125 U/L (45-117)
[2023-04-30 16:26] LABS: CALCIUM 15.5 mg/dL (8.5-10.1)
[2023-04-30] MEDS ORDERED: MAGNESIUM 1GM/D5W - 1 GM/100 ML IVPB IVPB ONE (16:36)
[2023-04-30] MEDS: MAGNESIUM 1GM/D5W - 1 GM/100 ML IVPB IVPB ONE (16:42)
[2023-04-30] MEDS: CALCITONIN - SALMON SYNTHETIC 400 UNIT/2 ML VIAL SQ SCH (19:01)
[2023-04-30] MEDS ORDERED: PIPERACILLIN/TAZOB 3.375 GM 3.375 GM/50 ML BAG IVPB ONE (19:46)
[2023-04-30] MEDS: PIPERACILLIN/TAZOB 3.375 GM 3.375 GM in DEXTROSE 5%-WATER - 50 ML IVPB SCH (19:54)
[2023-04-30] MEDS: VANCOMYCIN PREMIX 1.5 GM 1,500 MG/300 ML BAG IVPB ONE (20:37)
[2023-04-30] MEDS: SODIUM CHLORIDE 1,000 ML IV SCH (20:37)
[2023-04-30] MEDS ORDERED: FUROSEMIDE 40 MG/4 ML INJECTABLE VIAL ONE (21:00)
[2023-04-30 21:02] LABS: CALCIUM 14.9 mg/dL (8.5-10.1)
[2023-04-30] MEDS: FUROSEMIDE 40 MG/4 ML INJECTABLE VIAL IVPUSH ONE (21:03)
[2023-04-30] MEDS ORDERED: HEPARIN NA (PORCINE) 5,000 UNITS/ML 1ML VIAL ONE (22:04)
[2023-04-30] MEDS: HEPARIN NA (PORCINE) 5,000 UNITS/ML 1ML VIAL SQ SCH (22:23)
[2023-04-30 22:49] LABS: N-TERMINAL BNP 14934.8 pg/ml (5-450)
[2023-05-01] MEDS: ZOLEDRONIC ACID 3.5 MG in SODIUM CHLORIDE 100 ML IVPB ONE (03:35)
[2023-05-01] MEDS: INSULIN ASPART SLIDING SCALE (NOVOLOG) 1 VIAL SQ SCH (03:36)
[2023-05-01 06:19] LABS: ARTERIAL BLD GAS O2 SATURATION 99.6 % (95-98); ARTERIAL BLOOD GAS BASE EXCESS 4.1 mmol/L (-2-2); ARTERIAL BLOOD GAS PO2 249.7 mmHg (80-100); ARTERIAL BLOOD GAS pH 7.407 (7.350-7.450)
[2023-05-01 06:20] LABS: ALLENS TEST POSITIVE
[2023-05-01 07:05] LABS: POTASSIUM 3.5 mmol/L (3.5-5.1)
[2023-05-01 07:12] LABS: BLOOD UREA NITROGEN 24.8 mg/dL (7-18)
[2023-05-01 07:13] LABS: ALBUMIN 2.3 g/dl (3.4-5.0)
[2023-05-01 07:14] LABS: CALCIUM 13.7 mg/dL (8.5-10.1)
[2023-05-01 07:16] LABS: CREATININE 1.7 mg/dL (0.55-1.3); PHOSPHOROUS 3.5 mg/dL (2.5-4.9)
[2023-05-01 07:17] LABS: BILIRUBIN,TOTAL 0.5 mg/dL (0.2-1)
[2023-05-01 07:47] LABS: HEMOGLOBIN 10.8 GM/dL (11.7-16.9); MCH 28.9 pg (25.7-33.7); MCHC 33.6 g/dl (32.0-35.9); MEAN CELL VOLUME 85.8 fl (80-96); MEAN PLT VOLUME 9.2 fl (7.5-11.1); PLATELET COUNT 257 10^3/uL (134-434); RBC 3.72 M/mm3 (4.00-5.60); RDW 17.9 % (11.9-15.9); WHITE BLOOD COUNT 10.3 K/mm3 (4.0-10.0)
[2023-05-01 08:28] LABS: INR 1.47 (0.83-1.09)
[2023-05-01 08:54] LABS: PH,URINE 5.5 (5.0-8.0); URINE APPEARANCE CLEAR; URINE BILIRUBIN NEGATIVE (NEGATIVE); URINE COLOR YELLOW; URINE GLUCOSE (UA) NEGATIVE (NEGATIVE); URINE KETONE NEGATIVE (NEGATIVE); URINE LEUK ESTERASE NEGATIVE (NEGATIVE); URINE NITRITE NEGATIVE (NEGATIVE); URINE PROTEIN NEGATIVE (NEGATIVE); URINE UROBILINOGEN 0.2 mg/dL (0.2-1.0)
[2023-05-01] MEDS: LACTATED RINGERS SOLUTION 1,000 ML/1,000 ML INFUS.BAG IV SCH (10:31)
[2023-05-01] MEDS: MAGNESIUM SULFATE IN WATER 2 GM/50 ML IVPB IVPB ONE (11:22)
[2023-05-01 11:25] LABS: ERYTHROCYTE SEDIMENTATION RATE 98 mm/hr (0-20)
[2023-05-01] MEDS: MAGNESIUM 1GM/D5W - 1 GM/100 ML IVPB IVPB ONE (12:00)
[2023-05-01] MEDS ORDERED: PNEUMOC 20-VAL CONJ-DIP CRM/PF 0.5 ML SYRINGE IM ONE ×2 (12:00→17:45)
[2023-05-01 12:32] VITALS: BMI 35.6
[2023-05-01] MEDS: CALCITONIN - SALMON SYNTHETIC 400 UNIT/2 ML VIAL SQ SCH (13:29)
[2023-05-01] MEDS: ENOXAPARIN NA (PORCINE) 100 MG/1 ML DISP.SYRIN SQ SCH (13:30)
[2023-05-01] MEDS: KCL 10 MEQ IVPB 10 MEQ/100 ML INFUS.BAG IVPB SCH (14:20)
[2023-05-01] MEDS: PIPERACILLIN/TAZOB 3.375 GM 3.375 GM in DEXTROSE 5%-WATER - 50 ML IVPB SCH (17:52)
[2023-05-01] MEDS ORDERED: VANCOMYCIN HCL 1,500 MG in DEXTROSE 5%-WATER - 500 ML IVPB SCH (20:00)
[2023-05-02 06:25] LABS: BASO % 0.3 % (0-2.0); EOS % 3.2 % (0-4.5); HEMATOCRIT 36.7 % (35.4-49); HEMOGLOBIN 12.1 GM/dL (11.7-16.9); LYMPH % 5.7 % (8-40); MCH 28.7 pg (25.7-33.7); MCHC 33.1 g/dl (32.0-35.9); MEAN CELL VOLUME 86.8 fl (80-96); MEAN PLT VOLUME 9.3 fl (7.5-11.1); MONO % 9.8 % (3.8-10.2); PLATELET COUNT 244 10^3/uL (134-434); RBC 4.23 M/mm3 (4.00-5.60); RDW 18.2 % (11.9-15.9); WHITE BLOOD COUNT 10.1 K/mm3 (4.0-10.0)
[2023-05-02 07:05] LABS: POTASSIUM 3.4 mmol/L (3.5-5.1)
[2023-05-02 07:08] LABS: ALBUMIN 2.1 g/dl (3.4-5.0); CALCIUM 13.7 mg/dL (8.5-10.1)
[2023-05-02 07:09] LABS: BLOOD UREA NITROGEN 27.6 mg/dL (7-18); MAGNESIUM 1.6 mg/dL (1.8-2.4)
[2023-05-02 07:12] LABS: CREATININE 1.7 mg/dL (0.55-1.3); PHOSPHOROUS 2.7 mg/dL (2.5-4.9)
[2023-05-02 07:13] LABS: BILIRUBIN,TOTAL 0.4 mg/dL (0.2-1); TOT PROT 5.9 g/dl (6.4-8.2)
[2023-05-02] MEDS: MAGNESIUM SULFATE IN WATER 2 GM/50 ML IVPB IVPB ONE (09:20)
[2023-05-02] MEDS: KCL 10 MEQ IVPB 10 MEQ/100 ML INFUS.BAG IVPB SCH (09:21)
[2023-05-02] MEDS: POTASSIUM CHLORIDE ORAL LIQUID 20 MEQ/15 ML PO ONE (09:47)
[2023-05-02] MEDS: LACTATED RINGERS SOLUTION 1,000 ML/1,000 ML INFUS.BAG IV SCH (11:15)
[2023-05-02] MEDS: PIPERACILLIN/TAZOB 3.375 GM 3.375 GM in DEXTROSE 5%-WATER - 50 ML IVPB SCH (11:26)
[2023-05-03 07:14] LABS: BASO % 0.3 % (0-2.0); EOS % 7.5 % (0-4.5); HEMATOCRIT 31.4 % (35.4-49); HEMOGLOBIN 10.4 GM/dL (11.7-16.9); LYMPH % 6.2 % (8-40); MCH 28.5 pg (25.7-33.7); MCHC 33.2 g/dl (32.0-35.9); MEAN CELL VOLUME 85.9 fl (80-96); PLATELET COUNT 223 10^3/uL (134-434); RBC 3.66 M/mm3 (4.00-5.60); RDW 17.7 % (11.9-15.9); WHITE BLOOD COUNT 9.4 K/mm3 (4.0-10.0)
[2023-05-03 07:33] LABS: POTASSIUM 3.6 mmol/L (3.5-5.1)
[2023-05-03 07:37] LABS: ALBUMIN 1.7 g/dl (3.4-5.0)
[2023-05-03 07:39] LABS: CREATININE 1.5 mg/dL (0.55-1.3)
[2023-05-03 07:41] LABS: TOT PROT 5.1 g/dl (6.4-8.2)
[2023-05-03 07:43] LABS: BILIRUBIN,TOTAL 0.3 mg/dL (0.2-1)
[2023-05-03 07:44] LABS: CALCIUM 11.3 mg/dL (8.5-10.1)
[2023-05-03] MEDS ORDERED: INSULIN (NOVOLOG) ASPART 100 UNITS/ML 10ML VIAL ONE (10:49)
[2023-05-03] MEDS ORDERED: HEPARIN NA (PORCINE) 5,000 UNITS/ML 1ML VIAL IVPUSH PRN ×3 (12:17→12:25)
[2023-05-03] MEDS: HEPARIN INFUSION - 25,000 UNITS/500 ML INFUS.BAG IVPB SCH (14:42)
[2023-05-03 16:41] LABS: BF WBC & OTHER NUCLEATED CELLS 145 /mm3; BODY FLUID MACROPHAGES 2 %; BODY FLUID MONOCYTE 26 %
[2023-05-03] MEDS: NYSTATIN POWDER 100,000 UNITS/GM - 15 GM TOPICAL POWDER TP SCH (16:43)
[2023-05-03 17:06] LABS: IG A QN SERUM. 292 mg/dL (61-437)
[2023-05-03] MEDS: NYSTATIN 500,000 UNITS/5 ML SUSPENSION PO SCH (17:29)
[2023-05-03] MEDS: TAMSULOSIN HCL 0.4 MG CAP PO SCH (22:29)
[2023-05-04 07:07] LABS: MCH 28.6 pg (25.7-33.7); MCHC 33.2 g/dl (32.0-35.9); MEAN CELL VOLUME 85.9 fl (80-96); MEAN PLT VOLUME 8.4 fl (7.5-11.1); PLATELET COUNT 196 10^3/uL (134-434); RBC 3.49 M/mm3 (4.00-5.60); RDW 18.1 % (11.9-15.9); WHITE BLOOD COUNT 8.7 K/mm3 (4.0-10.0)
[2023-05-04 08:36] LABS: ALBUMIN 1.8 g/dl (3.4-5.0); BILIRUBIN,TOTAL 0.3 mg/dL (0.2-1); BLOOD UREA NITROGEN 24.3 mg/dL (7-18); CALCIUM 10.1 mg/dL (8.5-10.1); CREATININE 1.5 mg/dL (0.55-1.3); MAGNESIUM 1.3 mg/dL (1.8-2.4); PHOSPHOROUS 1.6 mg/dL (2.5-4.9); POTASSIUM 3.4 mmol/L (3.5-5.1); TOT PROT 5.2 g/dl (6.4-8.2)
[2023-05-04] MEDS: metoPROLOL SUCCINATE 25 MG TAB.SR.24H (FP) PO SCH (09:27)
[2023-05-04] MEDS: ATORVASTATIN CA 20 MG TABLET (FP) PO SCH (09:27)
[2023-05-04] MEDS: MAGNESIUM SULFATE IN WATER 2 GM/50 ML IVPB IVPB ONE (11:16)
[2023-05-04] MEDS: SILVER SULFADIAZINE 1% TOP CREAM 50 GM JAR TP SCH (12:19)
[2023-05-04] MEDS: POTASSIUM PHOSPHATE 30 MM in SODIUM CHLORIDE 500 ML IVPB ONE (12:19)
[2023-05-04 16:05] LABS: POTASSIUM 3.5 mmol/L (3.5-5.1)
[2023-05-04 16:07] LABS: BLOOD UREA NITROGEN 22.6 mg/dL (7-18); CALCIUM 9.6 mg/dL (8.5-10.1)
[2023-05-04 16:11] LABS: CREATININE 1.4 mg/dL (0.55-1.3)
[2023-05-04 18:10] LABS: BODY FLUID ALBUMIN 1.5 g/dL (Not Estab.)
[2023-05-05 08:40] LABS: HEMATOCRIT 28.6 % (35.4-49); HEMOGLOBIN 9.8 GM/dL (11.7-16.9); MCHC 34.2 g/dl (32.0-35.9); MEAN CELL VOLUME 84.8 fl (80-96); MEAN PLT VOLUME 9.7 fl (7.5-11.1); PLATELET COUNT 192 10^3/uL (134-434); RBC 3.37 M/mm3 (4.00-5.60); RDW 17.7 % (11.9-15.9); WHITE BLOOD COUNT 7.1 K/mm3 (4.0-10.0)
[2023-05-05 08:50] LABS: POTASSIUM 3.7 mmol/L (3.5-5.1)
[2023-05-05 08:54] LABS: BLOOD UREA NITROGEN 21.4 mg/dL (7-18)
[2023-05-05 08:55] LABS: ALBUMIN 1.8 g/dl (3.4-5.0); MAGNESIUM 1.6 mg/dL (1.8-2.4)
[2023-05-05 08:57] LABS: PHOSPHOROUS 2.3 mg/dL (2.5-4.9)
[2023-05-05 08:58] LABS: BILIRUBIN,TOTAL 0.3 mg/dL (0.2-1); CREATININE 1.3 mg/dL (0.55-1.3); TOT PROT 5.1 g/dl (6.4-8.2)
[2023-05-05] MEDS ORDERED: MAGNESIUM SULF 50% (8.12 MEQ/2 ML-1 GM VIAL) IVPB ONE (09:18)
[2023-05-05] MEDS ORDERED: MAGNESIUM 2GM/50ML STERILE WATER IVPB IVPB ONE (09:30)
[2023-05-05] MEDS: MAGNESIUM 2GM/50ML STERILE WATER IVPB IVPB ONE (10:22)
[2023-05-05] MEDS: NAPH,MB-DB/K PH,MBDB POWDER PACKET PO ONE (10:22)
[2023-05-05] MEDS: INSULIN ASPART SLIDING SCALE (NOVOLOG) 1 VIAL SQ SCH (11:52)
[2023-05-05] MEDS: ENOXAPARIN NA (PORCINE) 100 MG/1 ML DISP.SYRIN SQ SCH (21:54)
[2023-05-05] MEDS ORDERED: INSULIN (NOVOLOG) ASPART 100 UNITS/ML 10ML VIAL ONE (21:59)
[2023-05-06 07:45] LABS: HEMOGLOBIN 9.8 GM/dL (11.7-16.9); MCH 28.7 pg (25.7-33.7); MCHC 33.9 g/dl (32.0-35.9); MEAN CELL VOLUME 84.6 fl (80-96); MEAN PLT VOLUME 9.5 fl (7.5-11.1); PLATELET COUNT 195 10^3/uL (134-434); RBC 3.42 M/mm3 (4.00-5.60); RDW 17.7 % (11.9-15.9); WHITE BLOOD COUNT 7.1 K/mm3 (4.0-10.0)
[2023-05-06 08:19] LABS: POTASSIUM 3.6 mmol/L (3.5-5.1)
[2023-05-06 08:21] LABS: CALCIUM 8.2 mg/dL (8.5-10.1)
[2023-05-06 08:22] LABS: ALBUMIN 1.8 g/dl (3.4-5.0); BLOOD UREA NITROGEN 20.4 mg/dL (7-18); MAGNESIUM 1.7 mg/dL (1.8-2.4)
[2023-05-06 08:25] LABS: CREATININE 1.3 mg/dL (0.55-1.3); PHOSPHOROUS 2.3 mg/dL (2.5-4.9)
[2023-05-06 08:26] LABS: BILIRUBIN,TOTAL 0.2 mg/dL (0.2-1); TOT PROT 4.9 g/dl (6.4-8.2)
[2023-05-06] MEDS: MAGNESIUM SULF 50% (8.12 MEQ/2 ML-1 GM VIAL) IVPB ONE (10:50)
[2023-05-06] MEDS: ACETAMINOPHEN 500 MG TABLET (FP) PO ONE (11:49)
[2023-05-06] MEDS ORDERED: ACETAMINOPHEN 500 MG TABLET (FP) PO PRN (17:30)
[2023-05-07 07:04] LABS: HEMATOCRIT 28.8 % (35.4-49); HEMOGLOBIN 9.6 GM/dL (11.7-16.9); MCH 28.2 pg (25.7-33.7); MCHC 33.1 g/dl (32.0-35.9); MEAN CELL VOLUME 85.1 fl (80-96); MEAN PLT VOLUME 9.1 fl (7.5-11.1); PLATELET COUNT 186 10^3/uL (134-434); RBC 3.39 M/mm3 (4.00-5.60); RDW 17.7 % (11.9-15.9)
[2023-05-07 07:15] LABS: POTASSIUM 3.6 mmol/L (3.5-5.1)
[2023-05-07 07:21] LABS: MAGNESIUM 1.9 mg/dL (1.8-2.4)
[2023-05-07 07:22] LABS: ALBUMIN 1.8 g/dl (3.4-5.0); BLOOD UREA NITROGEN 18.2 mg/dL (7-18)
[2023-05-07 07:26] LABS: CREATININE 1.2 mg/dL (0.55-1.3); PHOSPHOROUS 2.4 mg/dL (2.5-4.9)
[2023-05-07 07:27] LABS: BILIRUBIN,TOTAL 0.2 mg/dL (0.2-1)
[2023-05-07] MEDS ORDERED: MIDAZOLAM HCL 2 MG/2 ML SINGLE DOSE VIAL ONE (13:36)
[2023-05-07] MEDS ORDERED: ONDANSETRON 4 MG/2 ML VIAL ONE (14:21)
[2023-05-07] MEDS: FUROSEMIDE 40 MG TABLET (FP) PO ONE (16:33)
[2023-05-08 07:15] LABS: HEMATOCRIT 30.4 % (35.4-49); MCH 28.1 pg (25.7-33.7); MCHC 32.9 g/dl (32.0-35.9); MEAN CELL VOLUME 85.5 fl (80-96); MEAN PLT VOLUME 8.6 fl (7.5-11.1); PLATELET COUNT 202 10^3/uL (134-434); RBC 3.55 M/mm3 (4.00-5.60); RDW 17.4 % (11.9-15.9); WHITE BLOOD COUNT 7.7 K/mm3 (4.0-10.0)
[2023-05-08 07:40] LABS: POTASSIUM 3.5 mmol/L (3.5-5.1)
[2023-05-08 07:47] LABS: CALCIUM 7.6 mg/dL (8.5-10.1)
[2023-05-08 07:48] LABS: ALBUMIN 1.9 g/dl (3.4-5.0); BLOOD UREA NITROGEN 17.7 mg/dL (7-18); MAGNESIUM 1.6 mg/dL (1.8-2.4)
[2023-05-08 07:51] LABS: CREATININE 1.3 mg/dL (0.55-1.3); PHOSPHOROUS 1.9 mg/dL (2.5-4.9)
[2023-05-08 07:52] LABS: BILIRUBIN,TOTAL 0.2 mg/dL (0.2-1); TOT PROT 5.3 g/dl (6.4-8.2)
[2023-05-08] MEDS ORDERED: POTASSIUM PHOSPHATE 45 MM in SODIUM CHLORIDE 500 ML IVPB ONE (09:42)
[2023-05-08] MEDS ORDERED: MAGNESIUM 2GM/50ML STERILE WATER IVPB IVPB ONE (09:43)
[2023-05-08] MEDS ORDERED: POTASSIUM PHOSPHATE 30 MM in SODIUM CHLORIDE 250 ML IVPB ONE (11:00)
[2023-05-08] MEDS: NAPH,MB-DB/K PH,MBDB POWDER PACKET PO ONE (12:11)
[2023-05-08] MEDS: MAGNESIUM CL 64 MG TABLET.SA PO SCH (13:14)
[2023-05-08 14:07] VITALS: RESP 18
[2023-05-08] MEDS: LACTOBACILLUS ACIDOPHILUS 1 TABLET PO SCH (21:46)
[2023-05-08] MEDS: NAPH,MB-DB/K PH,MBDB POWDER PACKET PO SCH (21:46)
[2023-05-09 06:14] VITALS: TEMP 97.7
[2023-05-09 07:17] LABS: HEMOGLOBIN 9.6 GM/dL (11.7-16.9); MCH 28.2 pg (25.7-33.7); MEAN CELL VOLUME 85.3 fl (80-96); MEAN PLT VOLUME 9.2 fl (7.5-11.1); PLATELET COUNT 220 10^3/uL (134-434); RDW 17.5 % (11.9-15.9); WHITE BLOOD COUNT 7.2 K/mm3 (4.0-10.0)
[2023-05-09 07:33] LABS: POTASSIUM 3.7 mmol/L (3.5-5.1)
[2023-05-09 07:39] LABS: CALCIUM 7.2 mg/dL (8.5-10.1)
[2023-05-09 07:40] LABS: ALBUMIN 1.8 g/dl (3.4-5.0); BLOOD UREA NITROGEN 14.7 mg/dL (7-18); MAGNESIUM 1.3 mg/dL (1.8-2.4)
[2023-05-09 07:43] LABS: PHOSPHOROUS 1.5 mg/dL (2.5-4.9)
[2023-05-09 07:44] LABS: BILIRUBIN,TOTAL 0.2 mg/dL (0.2-1); TOT PROT 5.1 g/dl (6.4-8.2)
[2023-05-09] MEDS ORDERED: MAGNESIUM SULF 50% (8.12 MEQ/2 ML-1 GM VIAL) IVPB ONE (08:04)
[2023-05-09] MEDS ORDERED: POTASSIUM PHOSPHATE 45 MM in SODIUM CHLORIDE 500 ML IVPB ONE (08:05)
[2023-05-09] MEDS: MAGNESIUM 2GM/50ML STERILE WATER IVPB IVPB SCH (09:46)
[2023-05-09] MEDS: POTASSIUM PHOSPHATE 45 MM in SODIUM CHLORIDE 500 ML IVPB ONE (11:21)
[2023-05-09 12:11] VITALS: BP 104/56; PULSE 83
[2023-05-09] MEDS: NAPH,MB-DB/K PH,MBDB POWDER PACKET PO SCH (14:08)
== END 2023-05-09 15:24 | DRG 477 ==
LOC: JER 13:18 → JERBED 17:03 → J4S 23:42 → JICU 05-01 01:15 → J4W 05-03 17:00
PROVIDERS: ADMIT Internal Medicine; ATTEND Internal Medicine
PROC: 0W993ZZ Drainage of Right Pleural Cavity, Percutaneous Approach (ICD-10-PCS; principal; 2023-05-03)
PROC: 0QBS3ZX Excision of Coccyx, Percutaneous Approach, Diagnostic (ICD-10-PCS; 2023-05-07)
DX: D49.2 Neoplasm of unspecified behavior of bone, soft tissue, and skin (principal); E43 Unspecified severe protein-calorie malnutrition; J96.01 Acute respiratory failure with hypoxia; G93.41 Metabolic encephalopathy; N17.9 Acute kidney failure, unspecified; L03.116 Cellulitis of left lower limb; L97.828 Non-pressure chronic ulcer of other part of left lower leg with other specified severity; J98.11 Atelectasis; J90 Pleural effusion, not elsewhere classified; I13.0 Hypertensive heart and chronic kidney disease with heart failure and stage 1 through stage 4 chronic kidney disease, or unspecified chronic kidney disease; G95.89 Other specified diseases of spinal cord; E83.52 Hypercalcemia; I27.20 Pulmonary hypertension, unspecified; E11.9 Type 2 diabetes mellitus without complications; Z68.35 Body mass index [BMI] 35.0-35.9, adult; I48.91 Unspecified atrial fibrillation; I05.0 Rheumatic mitral stenosis; E83.42 Hypomagnesemia; E83.39 Other disorders of phosphorus metabolism; E11.22 Type 2 diabetes mellitus with diabetic chronic kidney disease; N18.9 Chronic kidney disease, unspecified; D72.829 Elevated white blood cell count, unspecified; N40.0 Benign prostatic hyperplasia without lower urinary tract symptoms; I50.9 Heart failure, unspecified; R68.89 Other general symptoms and signs; W18.39XA Other fall on same level, initial encounter; Y93.9 Activity, unspecified; Y92.098 Other place in other non-institutional residence as the place of occurrence of the external cause; Y99.9 Unspecified external cause status
CPT/HCPCS: 0241U-QW; 20220; 36415; 36600; 70450-TC; 71045-TC-FY; 71250-TC; 72125-TC; 72170-TC-FY; 74176-TC; 76942; 77012-TC; 80048; 80053; 81003; 82042; 82150; 82306; 82310; 82465; 82550; 82784; 82803; 82945; 82962; 83605; 83615; 83735; 83880; 83970; 83986; 84100; 84153; 84155; 84157; 84165; 84478; 84484; 85025; 85027; 85610; 85651; 85730; 86140; 87040; 87070; 87075; 87086; 87102; 87116; 87186; 87205; 87206; 87210; 88108; 88305-TC; 93005; 93010; 93306-TC; 93971-TC; 94010; 94761; 97163-GP; 99285-25; J0131; J1644; J3489

== ENCOUNTER 2023-05-30 08:17 | Inpatient (IN) | payer OTHER ==
[2023-05-30] MEDS: SODIUM CHLORIDE 0.9% 500 ML INFUS.BAG IV ONE ×3 (09:10→09:50)
[2023-05-30] MEDS ORDERED: PANTOPRAZOLE SODIUM 40 MG VIAL ONE (09:14)
[2023-05-30] MEDS ORDERED: EPINEPHrine 1:10,000 (P-F SYR) 1 MG/10 ML DISP.SYRIN ONE (09:14)
[2023-05-30 09:15] LABS: VENOUS O2 SATURATION 46.2 % (70-80); VENOUS PCO2 30.8 mmHg (38-52)
[2023-05-30 09:21] LABS: HEMATOCRIT 37.4 % (35.4-49); HEMOGLOBIN 11.4 GM/dL (11.7-16.9); MCH 28.9 pg (25.7-33.7); MCHC 30.4 g/dl (32.0-35.9); MEAN CELL VOLUME 94.9 fl (80-96); MEAN PLT VOLUME 9.9 fl (7.5-11.1); PLATELET COUNT 276 10^3/uL (134-434); RBC 3.94 M/mm3 (4.00-5.60); RDW 20.8 % (11.9-15.9); WHITE BLOOD COUNT 8.3 K/mm3 (4.0-10.0)
[2023-05-30 09:23] LABS: VENOUS BASE EXCESS -31.3 mmol/L (-2-2)
[2023-05-30 09:24] LABS: VENOUS PH 6.736 (7.310-7.410)
[2023-05-30 09:28] LABS: INR 1.37 (0.83-1.09); PROTHROMBIN TIME (PATIENT) 15.8 SEC (9.7-13.0)
[2023-05-30] MEDS: SODIUM BICARBONATE 8.4% 50 MEQ/50 ML VIAL IVPUSH ONE ×2 (09:28→10:20)
[2023-05-30 09:29] LABS: ACTIVATED PTT 44.8 SECONDS (25.2-36.5)
[2023-05-30 09:46] LABS: VENOUS BASE EXCESS -28.1 mmol/L (-2-2); VENOUS O2 SATURATION 74.7 % (70-80); VENOUS PCO2 26.6 mmHg (38-52)
[2023-05-30 09:47] LABS: VENOUS PH 6.854 (7.310-7.410)
[2023-05-30 09:55] LABS: CHLORIDE 95 mmol/L (98-107); POTASSIUM 5.6 mmol/L (3.5-5.1); SODIUM 136 mmol/L (136-145)
[2023-05-30 09:59] LABS: ALBUMIN 2.6 g/dl (3.4-5.0); ANION GAP 36 mmol/L (4-13); CALCIUM 8.3 mg/dL (8.5-10.1); CO2 5 mmol/L (21-32)
[2023-05-30 10:00] LABS: BLOOD UREA NITROGEN 68.7 mg/dL (7-18); GLUCOSE,RANDOM 278 mg/dL (74-106); MAGNESIUM 1.7 mg/dL (1.8-2.4)
[2023-05-30 10:02] LABS: SGOT/AST 24 U/L (15-37); SGPT/ALT 18 U/L (13-61)
[2023-05-30 10:04] LABS: BILIRUBIN,TOTAL 0.4 mg/dL (0.2-1); TOT PROT 6.6 g/dl (6.4-8.2)
[2023-05-30 10:05] LABS: ALK PHOS 158 U/L (45-117)
[2023-05-30 10:08] LABS: CREATININE 8.6 mg/dL (0.55-1.3)
[2023-05-30 10:18] LABS: LACTIC ACID 15.6 mmol/L (0.4-2.0); PHOSPHOROUS 10.3 mg/dL (2.5-4.9)
[2023-05-30] MEDS ORDERED: PIPERACILLIN/TAZOB 4.5 GM 4.5 GM/100 ML BAG IVPB ONE (10:21)
[2023-05-30] MEDS: PIPERACILLIN/TAZOB 4.5 GM 4.5 GM in DEXTROSE 5%-WATER 100 ML IVPB ONE (10:27)
[2023-05-30 11:20] LABS: CHLORIDE 102 mmol/L (98-107); SODIUM 142 mmol/L (136-145)
[2023-05-30 11:23] LABS: ALBUMIN 2.2 g/dl (3.4-5.0); ANION GAP 35 mmol/L (4-13); BLOOD UREA NITROGEN 64.8 mg/dL (7-18); CALCIUM 7.2 mg/dL (8.5-10.1); CO2 5 mmol/L (21-32); GLUCOSE,RANDOM 269 mg/dL (74-106)
[2023-05-30 11:25] LABS: SGPT/ALT 16 U/L (13-61)
[2023-05-30 11:26] LABS: SGOT/AST 21 U/L (15-37)
[2023-05-30 11:27] LABS: BILIRUBIN,TOTAL 0.3 mg/dL (0.2-1); TOT PROT 5.5 g/dl (6.4-8.2)
[2023-05-30 11:37] LABS: ALK PHOS 126 U/L (45-117); CREATININE 7.6 mg/dL (0.55-1.3)
[2023-05-30 11:40] LABS: HEMATOCRIT 35.9 % (35.4-49); HEMOGLOBIN 10.9 GM/dL (11.7-16.9); MCH 28.5 pg (25.7-33.7); MCHC 30.5 g/dl (32.0-35.9); MEAN CELL VOLUME 93.7 fl (80-96); MEAN PLT VOLUME 9.2 fl (7.5-11.1); PLATELET COUNT 231 10^3/uL (134-434); RBC 3.84 M/mm3 (4.00-5.60); RDW 19.5 % (11.9-15.9); WHITE BLOOD COUNT 8.4 K/mm3 (4.0-10.0)
[2023-05-30 11:52] LABS: VENOUS BASE EXCESS -30.1 mmol/L (-2-2); VENOUS O2 SATURATION 87.7 % (70-80); VENOUS PCO2 21.8 mmHg (38-52)
[2023-05-30] MEDS ORDERED: NOREPINEPHRINE 0.9 % NACL 8 MG/250 ML BAG IVPB ONE (12:04)
[2023-05-30] MEDS: NOREPINEPHRINE BITARTRATE/D5W 8 MG/250 ML BAG IVPB SCH (12:10)
[2023-05-30] MEDS: SODIUM BICARBONATE 8.4% - 150 MEQ in DEXTROSE 5%-WATER - 950 ML IVPB SCH ×3 (12:10→23:58)
[2023-05-30] MEDS: VANCOMYCIN PREMIX 1.5 GM 1,500 MG/300 ML BAG IVPB ONE (12:10)
[2023-05-30] MEDS: LACTATED RINGERS SOLUTION 1000 ML INFUS.BAG IV ONE (12:10)
[2023-05-30 12:22] LABS: VENOUS PH 6.81 (7.310-7.410)
[2023-05-30 12:37] LABS: ANISOCYTOSIS 2+; MACROCYTOSIS 0
[2023-05-30 12:49] LABS: LACTIC ACID 14.3 mmol/L (0.4-2.0)
[2023-05-30] MEDS: INSULIN REGULAR 100 UNITS in SODIUM CHLORIDE 99 ML IVPB SCH ×2 (13:00→15:09)
[2023-05-30] MEDS ORDERED: INSULIN REGULAR 100 UNITS in SODIUM CHLORIDE 99 ML IVPB SCH (13:00)
[2023-05-30] MEDS ORDERED: SODIUM CHLORIDE 250 ML IV PRN (13:24)
[2023-05-30 13:34] LABS: ANISOCYTOSIS 2+; MACROCYTOSIS 0; OVALOCYTE 0
[2023-05-30] MEDS: VANCOMYCIN HCL 1,500 MG in DEXTROSE 5%-WATER - 500 ML IVPB ONE (14:55)
[2023-05-30] MEDS: INSULIN REGULAR HUMAN 100 UNITS/ML *VIAL* (FOR IVP) IVPUSH ONE (16:07)
[2023-05-30] MEDS: INSULIN REGULAR HUMAN 100 UNITS/ML *VIAL IVPUSH ONE (16:08)
[2023-05-30] MEDS: VASopressin 40 UNITS/100 ML BAG IV SCH (16:14)
[2023-05-30] MEDS ORDERED: PHENYLEPHRINE NS PREMIX 50,000 MCG/500 ML BAG CVP SCH (16:45)
[2023-05-30] MEDS: PIPERACILLIN/TAZOB 2.25 GM 2.25 GM in DEXTROSE 5%-WATER - 50 ML IVPB SCH (18:13)
[2023-05-30] MEDS: HYDROCORTISONE SOD SUCCINATE 100 MG/2 ML VIAL IVPB SCH (21:05)
[2023-05-30 21:09] LABS: VENOUS BASE EXCESS -14.6 mmol/L (-2-2); VENOUS PCO2 31.1 mmHg (38-52); VENOUS PH 7.206 (7.310-7.410)
[2023-05-30 21:16] LABS: BASO % 0.1 % (0-2.0); HEMATOCRIT 30.7 % (35.4-49); HEMOGLOBIN 10.1 GM/dL (11.7-16.9); LYMPH % 7.4 % (8-40); MCH 28.8 pg (25.7-33.7); MCHC 32.9 g/dl (32.0-35.9); MEAN CELL VOLUME 87.4 fl (80-96); MONO % 9.3 % (3.8-10.2); NEUT % 83.2 % (42.8-82.8); PLATELET COUNT 191 10^3/uL (134-434); RBC 3.52 M/mm3 (4.00-5.60); RDW 18.6 % (11.9-15.9)
[2023-05-30 21:20] LABS: INR 1.4 (0.83-1.09); PROTHROMBIN TIME (PATIENT) 16.2 SEC (9.7-13.0)
[2023-05-30 21:38] LABS: POTASSIUM 3.7 mmol/L (3.5-5.1)
[2023-05-30 21:40] LABS: ALBUMIN 2.3 g/dl (3.4-5.0); BLOOD UREA NITROGEN 43.1 mg/dL (7-18); CALCIUM 7.3 mg/dL (8.5-10.1); MAGNESIUM 1.3 mg/dL (1.8-2.4)
[2023-05-30 21:41] LABS: CALCIUM 7.3 mg/dL (8.5-10.1)
[2023-05-30 21:42] LABS: ALBUMIN 2.4 g/dl (3.4-5.0); BLOOD UREA NITROGEN 42.3 mg/dL (7-18)
[2023-05-30 21:44] LABS: CREATININE 5.5 mg/dL (0.55-1.3)
[2023-05-30 21:45] LABS: BILIRUBIN,TOTAL 0.4 mg/dL (0.2-1); CREATININE 5.4 mg/dL (0.55-1.3); TOT PROT 5.7 g/dl (6.4-8.2)
[2023-05-30 21:47] LABS: BILIRUBIN,TOTAL 0.4 mg/dL (0.2-1); TOT PROT 5.7 g/dl (6.4-8.2)
[2023-05-30 21:49] LABS: LACTIC ACID 12.8 mmol/L (0.4-2.0)
[2023-05-30] MEDS: MUPIROCIN 2% TOPICAL OINTMENT FOR DECOLONIZATION NS SCH (22:17)
[2023-05-30] MEDS: MAGNESIUM 2GM/50ML STERILE WATER IVPB IVPB ONE (22:17)
[2023-05-30] MEDS: CHLORHEXIDINE GLUCONATE 4% CLEANSER FOR DECOLONIZATION TP SCH (22:17)
[2023-05-30] MEDS ORDERED: DEXTROSE 50%-WATER 25 GM/50 ML DISP.SYRIN ONE (22:59)
[2023-05-30] MEDS: DEXTROSE 50%-WATER - 25 GM/50 ML VIAL IVPUSH PRN (22:59)
[2023-05-31 00:04] LABS: ARTERIAL BLOOD GAS BASE EXCESS -9.4 mmol/L (-2-2); ARTERIAL BLOOD GAS PO2 163.7 mmHg (80-100); ARTERIAL BLOOD GAS pH 7.308 (7.350-7.450)
[2023-05-31 00:34] LABS: HEMATOCRIT 29.3 % (35.4-49); HEMOGLOBIN 9.7 GM/dL (11.7-16.9); MCH 28.4 pg (25.7-33.7); MCHC 33.1 g/dl (32.0-35.9); MEAN PLT VOLUME 8.7 fl (7.5-11.1); PLATELET COUNT 174 10^3/uL (134-434); RBC 3.41 M/mm3 (4.00-5.60); RDW 18.3 % (11.9-15.9); WHITE BLOOD COUNT 11.3 K/mm3 (4.0-10.0)
[2023-05-31 01:13] LABS: POTASSIUM 3.6 mmol/L (3.5-5.1)
[2023-05-31 01:16] LABS: ALBUMIN 2.2 g/dl (3.4-5.0); BLOOD UREA NITROGEN 45.5 mg/dL (7-18); CALCIUM 7.1 mg/dL (8.5-10.1); MAGNESIUM 1.5 mg/dL (1.8-2.4)
[2023-05-31 01:19] LABS: CREATININE 5.7 mg/dL (0.55-1.3)
[2023-05-31 01:20] LABS: PHOSPHOROUS 3.9 mg/dL (2.5-4.9)
[2023-05-31 01:21] LABS: BILIRUBIN,TOTAL 0.4 mg/dL (0.2-1); TOT PROT 5.3 g/dl (6.4-8.2)
[2023-05-31] MEDS ORDERED: MAGNESIUM SULF 50% (8.12 MEQ/2 ML-1 GM VIAL) ONE (01:56)
[2023-05-31] MEDS: SODIUM CHLORIDE 0.9% 500 ML INFUS.BAG IV ONE (02:05)
[2023-05-31] MEDS: DEXTROSE 50%-WATER 25 GM/50 ML DISP.SYRIN IVPUSH ONE (03:58)
[2023-05-31] MEDS: INSULIN REGULAR 100 UNITS in SODIUM CHLORIDE 99 ML IVPB SCH (04:00)
[2023-05-31] MEDS: SODIUM BICARBONATE 8.4% - 150 MEQ in DEXTROSE 5%-WATER - 950 ML IVPB SCH (04:15)
[2023-05-31] MEDS: MAGNESIUM SULFATE IN WATER 2 GM/50 ML IVPB IVPB ONE (04:16)
[2023-05-31 07:35] LABS: HEMATOCRIT 28.7 % (35.4-49); HEMOGLOBIN 9.5 GM/dL (11.7-16.9); MCH 28.4 pg (25.7-33.7); MCHC 33.3 g/dl (32.0-35.9); MEAN CELL VOLUME 85.4 fl (80-96); MEAN PLT VOLUME 9.4 fl (7.5-11.1); MONO % 15.8 % (3.8-10.2); NEUT % 81.2 % (42.8-82.8); PLATELET COUNT 160 10^3/uL (134-434); RBC 3.36 M/mm3 (4.00-5.60); RDW 18.3 % (11.9-15.9); WHITE BLOOD COUNT 11.6 K/mm3 (4.0-10.0)
[2023-05-31 07:46] LABS: INR 1.51 (0.83-1.09); PROTHROMBIN TIME (PATIENT) 17.4 SEC (9.7-13.0)
[2023-05-31] MEDS: PANTOPRAZOLE SODIUM 40 MG VIAL IVPUSH ONE (07:52)
[2023-05-31 08:39] LABS: N-TERMINAL BNP 44013.4 pg/ml (5-450)
[2023-05-31 08:39] LABS: LACTIC ACID 6.6 mmol/L (0.4-2.0)
[2023-05-31 09:12] LABS: POTASSIUM 3.7 mmol/L (3.5-5.1)
[2023-05-31 09:14] LABS: ALBUMIN 2.1 g/dl (3.4-5.0); BLOOD UREA NITROGEN 46.9 mg/dL (7-18); MAGNESIUM 2.2 mg/dL (1.8-2.4)
[2023-05-31 09:17] LABS: CREATININE 5.5 mg/dL (0.55-1.3)
[2023-05-31 09:18] LABS: BILIRUBIN,TOTAL 0.4 mg/dL (0.2-1); TOT PROT 5.2 g/dl (6.4-8.2)
[2023-05-31 10:25] LABS: CHLORIDE 99 mmol/L (98-107); POTASSIUM 3.8 mmol/L (3.5-5.1); SODIUM 137 mmol/L (136-145)
[2023-05-31 10:27] LABS: ALBUMIN 2.2 g/dl (3.4-5.0); ANION GAP 13 mmol/L (4-13); CO2 25 mmol/L (21-32); GLUCOSE,RANDOM 142 mg/dL (74-106)
[2023-05-31 10:30] LABS: SGOT/AST 38 U/L (15-37); SGPT/ALT 15 U/L (13-61)
[2023-05-31 10:30] LABS: ARTERIAL BLD GAS O2 SATURATION 98.3 % (95-98); ARTERIAL BLOOD GAS PO2 118.2 mmHg (80-100); ARTERIAL BLOOD GAS pH 7.393 (7.350-7.450)
[2023-05-31 10:31] LABS: CREATININE 5.8 mg/dL (0.55-1.3)
[2023-05-31 10:32] LABS: BILIRUBIN,TOTAL 0.5 mg/dL (0.2-1); TOT PROT 5.1 g/dl (6.4-8.2)
[2023-05-31 10:33] LABS: ALK PHOS 118 U/L (45-117)
[2023-05-31 10:40] LABS: CALCIUM 6.9 mg/dL (8.5-10.1)
[2023-05-31] MEDS: PANTOPRAZOLE SODIUM 80 MG in SODIUM CHLORIDE 100 ML IVPB SCH (10:43)
[2023-05-31 10:45] LABS: URINE APPEARANCE TURBID; URINE BILIRUBIN NEGATIVE (NEGATIVE); URINE COLOR RED; URINE GLUCOSE (UA) 1+ (NEGATIVE); URINE KETONE NEGATIVE (NEGATIVE); URINE NITRITE POSITIVE (NEGATIVE); URINE PROTEIN 4+ (NEGATIVE); URINE UROBILINOGEN 0.2 mg/dL (0.2-1.0)
[2023-05-31 10:46] LABS: URINE LEUK ESTERASE 1+ (NEGATIVE)
[2023-05-31 10:47] LABS: LACTIC ACID 5.2 mmol/L (0.4-2.0)
[2023-05-31] MEDS ORDERED: INSULIN (NOVOLOG) ASPART 100 UNITS/ML 10ML VIAL ONE ×3 (11:15→21:16)
[2023-05-31] MEDS: DEXTROSE 5%-LACTATED RINGERS 1,000 ML IV SCH (11:18)
[2023-05-31] MEDS: INSULIN ASPART SLIDING SCALE (NOVOLOG) 1 VIAL SQ SCH (11:18)
[2023-05-31] MEDS: FUROSEMIDE 40 MG/4 ML INJECTABLE VIAL IVPUSH ONE (11:18)
[2023-05-31] MEDS: HYDROCORTISONE SOD SUCCINATE 100 MG/2 ML VIAL IVPUSH SCH (14:33)
[2023-05-31] MEDS ORDERED: ACETAMINOPHEN 325 MG TABLET (FP) PO PRN (15:54)
[2023-05-31] MEDS ORDERED: ALBUTEROL SO4 HFA INHALER IH PRN (15:54)
[2023-05-31] MEDS: CALCIUM GLUCONATE 10% - 1,000 MG/10 ML VIAL IVPB ONE (16:24)
[2023-05-31 20:40] LABS: HEMATOCRIT 27.4 % (35.4-49); HEMOGLOBIN 9.4 GM/dL (11.7-16.9); LYMPH % 2.5 % (8-40); MCH 28.7 pg (25.7-33.7); MCHC 34.2 g/dl (32.0-35.9); MEAN PLT VOLUME 9.1 fl (7.5-11.1); MONO % 9.8 % (3.8-10.2); NEUT % 87.7 % (42.8-82.8); PLATELET COUNT 136 10^3/uL (134-434); RBC 3.26 M/mm3 (4.00-5.60); RDW 18.4 % (11.9-15.9); WHITE BLOOD COUNT 9.9 K/mm3 (4.0-10.0)
[2023-05-31 20:48] LABS: INR 1.56 (0.83-1.09)
[2023-05-31 20:51] LABS: ACTIVATED PTT 37.2 SECONDS (25.2-36.5)
[2023-05-31 21:06] LABS: POTASSIUM 3.8 mmol/L (3.5-5.1)
[2023-05-31 21:09] LABS: ALBUMIN 2.1 g/dl (3.4-5.0); BLOOD UREA NITROGEN 51.1 mg/dL (7-18); MAGNESIUM 1.9 mg/dL (1.8-2.4)
[2023-05-31] MEDS: PANTOPRAZOLE SODIUM 40 MG VIAL IVPUSH SCH (21:10)
[2023-05-31] MEDS: BUDESONIDE/FORMETEROL FUMARATE 80/4.5 mcg INHALER IH SCH (21:11)
[2023-05-31 21:12] LABS: CREATININE 6.2 mg/dL (0.55-1.3); PHOSPHOROUS 4.8 mg/dL (2.5-4.9)
[2023-05-31 21:14] LABS: BILIRUBIN,TOTAL 0.4 mg/dL (0.2-1); TOT PROT 5.2 g/dl (6.4-8.2)
[2023-06-01] MEDS ORDERED: INSULIN (NOVOLOG) ASPART 100 UNITS/ML 10ML VIAL ONE ×3 (06:24→21:11)
[2023-06-01 07:40] LABS: BASO % 0.1 % (0-2.0); HEMATOCRIT 26.8 % (35.4-49); HEMOGLOBIN 9.2 GM/dL (11.7-16.9); LYMPH % 3.4 % (8-40); MCH 29.3 pg (25.7-33.7); MCHC 34.2 g/dl (32.0-35.9); MEAN CELL VOLUME 85.4 fl (80-96); MEAN PLT VOLUME 9.5 fl (7.5-11.1); MONO % 9.6 % (3.8-10.2); NEUT % 86.9 % (42.8-82.8); PLATELET COUNT 109 10^3/uL (134-434); RBC 3.14 M/mm3 (4.00-5.60); RDW 18.4 % (11.9-15.9); WHITE BLOOD COUNT 8.6 K/mm3 (4.0-10.0)
[2023-06-01 07:54] LABS: POTASSIUM 3.9 mmol/L (3.5-5.1)
[2023-06-01 08:01] LABS: BLOOD UREA NITROGEN 53.1 mg/dL (7-18); CALCIUM 7.1 mg/dL (8.5-10.1); MAGNESIUM 1.9 mg/dL (1.8-2.4)
[2023-06-01 08:03] LABS: PHOSPHOROUS 5.1 mg/dL (2.5-4.9)
[2023-06-01 08:04] LABS: CREATININE 6.3 mg/dL (0.55-1.3)
[2023-06-01 08:05] LABS: BILIRUBIN,TOTAL 0.4 mg/dL (0.2-1); TOT PROT 5.1 g/dl (6.4-8.2)
[2023-06-01 08:09] LABS: CARCINOEMBRYONIC ANTIGEN 2.3 ng/mL (0.0-4.7)
[2023-06-01] MEDS: ZINC OXIDE 20% TOPICAL OINTMENT 30 GM TUBE TP SCH (09:15)
[2023-06-01] MEDS ORDERED: SODIUM CHLORIDE 250 ML IV PRN (12:53)
[2023-06-01] MEDS: ALBUMIN HUMAN 25% 12.5 GM/50 ML VIAL IV SCH (13:30)
[2023-06-01] MEDS: HYDROCORTISONE SOD SUCCINATE 100 MG/2 ML VIAL IVPUSH SCH (21:10)
[2023-06-02] MEDS ORDERED: INSULIN (NOVOLOG) ASPART 100 UNITS/ML 10ML VIAL ONE ×2 (06:04→20:53)
[2023-06-02 07:12] LABS: HEMOGLOBIN 8.5 GM/dL (11.7-16.9); LYMPH % 5.9 % (8-40); MCH 28.9 pg (25.7-33.7); MCHC 34.1 g/dl (32.0-35.9); MEAN CELL VOLUME 84.8 fl (80-96); MEAN PLT VOLUME 9.4 fl (7.5-11.1); MONO % 9.3 % (3.8-10.2); NEUT % 84.8 % (42.8-82.8); PLATELET COUNT 93 10^3/uL (134-434); RBC 2.95 M/mm3 (4.00-5.60); RDW 18.9 % (11.9-15.9); WHITE BLOOD COUNT 4.7 K/mm3 (4.0-10.0)
[2023-06-02 07:31] LABS: POTASSIUM 3.6 mmol/L (3.5-5.1)
[2023-06-02 07:33] LABS: BLOOD UREA NITROGEN 37.3 mg/dL (7-18); CALCIUM 7.2 mg/dL (8.5-10.1); MAGNESIUM 1.8 mg/dL (1.8-2.4)
[2023-06-02 07:36] LABS: CREATININE 4.7 mg/dL (0.55-1.3); PHOSPHOROUS 3.2 mg/dL (2.5-4.9)
[2023-06-02 07:38] LABS: BILIRUBIN,TOTAL 0.4 mg/dL (0.2-1); TOT PROT 4.8 g/dl (6.4-8.2)
[2023-06-02] MEDS: MEROPENEM 500 MG in DEXTROSE 5%-WATER 100 ML IVPB ONE (10:24)
[2023-06-02] MEDS: MEROPENEM 500 MG in DEXTROSE 5%-WATER 100 ML IVPB SCH ×2 (14:06→15:39)
[2023-06-02] MEDS: CALCIUM ALGINATE TP SCH (14:38)
[2023-06-02 15:43] VITALS: BMI 35.4
[2023-06-02] MEDS: SODIUM CHLORIDE 1,000 ML IV SCH (15:45)
[2023-06-02 17:09] LABS: FREE KAPPA,SERUM 61.1 mg/L (3.3-19.4)
[2023-06-02] MEDS: HYDROCORTISONE SOD SUCCINATE 100 MG/2 ML VIAL IVPUSH SCH (21:02)
[2023-06-03 06:31] LABS: BASO % 0.1 % (0-2.0); EOS % 0.1 % (0-4.5); HEMATOCRIT 24.2 % (35.4-49); LYMPH % 11.7 % (8-40); MCH 28.5 pg (25.7-33.7); MCHC 33.2 g/dl (32.0-35.9); MEAN CELL VOLUME 85.7 fl (80-96); MEAN PLT VOLUME 9.5 fl (7.5-11.1); MONO % 11.6 % (3.8-10.2); NEUT % 76.5 % (42.8-82.8); PLATELET COUNT 89 10^3/uL (134-434); RBC 2.82 M/mm3 (4.00-5.60); RDW 18.3 % (11.9-15.9)
[2023-06-03 06:50] LABS: POTASSIUM 3.4 mmol/L (3.5-5.1)
[2023-06-03 06:52] LABS: BLOOD UREA NITROGEN 43.6 mg/dL (7-18); CALCIUM 7.2 mg/dL (8.5-10.1); MAGNESIUM 1.9 mg/dL (1.8-2.4)
[2023-06-03 06:53] LABS: ALBUMIN 1.9 g/dl (3.4-5.0)
[2023-06-03 06:56] LABS: CREATININE 5.4 mg/dL (0.55-1.3); PHOSPHOROUS 2.8 mg/dL (2.5-4.9)
[2023-06-03 06:57] LABS: BILIRUBIN,TOTAL 0.4 mg/dL (0.2-1); TOT PROT 4.6 g/dl (6.4-8.2)
[2023-06-03] MEDS ORDERED: SODIUM CHLORIDE 250 ML IV PRN (08:28)
[2023-06-03] MEDS: MEROPENEM 500 MG in DEXTROSE 5%-WATER 100 ML IVPB SCH (13:00)
[2023-06-03] MEDS: methylPREDNISolone NA SUCC 40 MG/1 ML VIAL IVPUSH SCH (13:00)
[2023-06-04 07:45] LABS: BASO % 0.1 % (0-2.0); HEMATOCRIT 24.7 % (35.4-49); HEMOGLOBIN 8.4 GM/dL (11.7-16.9); LYMPH % 7.8 % (8-40); MCHC 33.9 g/dl (32.0-35.9); MEAN CELL VOLUME 85.4 fl (80-96); MEAN PLT VOLUME 9.4 fl (7.5-11.1); MONO % 6.9 % (3.8-10.2); NEUT % 85.2 % (42.8-82.8); PLATELET COUNT 115 10^3/uL (134-434); RBC 2.89 M/mm3 (4.00-5.60); RDW 17.8 % (11.9-15.9); WHITE BLOOD COUNT 4.2 K/mm3 (4.0-10.0)
[2023-06-04 07:57] LABS: BLOOD UREA NITROGEN 29.1 mg/dL (7-18); CALCIUM 7.5 mg/dL (8.5-10.1); MAGNESIUM 1.8 mg/dL (1.8-2.4)
[2023-06-04 07:58] LABS: ALBUMIN 1.9 g/dl (3.4-5.0)
[2023-06-04 08:00] LABS: PHOSPHOROUS 2.9 mg/dL (2.5-4.9)
[2023-06-04 08:01] LABS: CREATININE 4.1 mg/dL (0.55-1.3)
[2023-06-04 08:02] LABS: BILIRUBIN,TOTAL 0.5 mg/dL (0.2-1); TOT PROT 4.7 g/dl (6.4-8.2)
[2023-06-04] MEDS ORDERED: INSULIN (NOVOLOG) ASPART 100 UNITS/ML 10ML VIAL ONE ×4 (11:29→16:42)
[2023-06-04] MEDS ORDERED: ALBUTEROL SO4 HFA INHALER IH PRN (16:50)
[2023-06-04] MEDS ORDERED: SODIUM CHLORIDE 250 ML IV PRN (17:13)
[2023-06-04] MEDS: SODIUM CHLORIDE 1,000 ML IV SCH (17:42)
[2023-06-04] MEDS: PANTOPRAZOLE SODIUM 40 MG VIAL IVPUSH SCH (21:32)
[2023-06-04] MEDS: INSULIN ASPART SLIDING SCALE (NOVOLOG) 1 VIAL SQ SCH (21:32)
[2023-06-04] MEDS ORDERED: MUPIROCIN 2% TOPICAL OINTMENT FOR DECOLONIZATION NS SCH (22:00)
[2023-06-04] MEDS ORDERED: CHLORHEXIDINE GLUCONATE 4% CLEANSER FOR DECOLONIZATION TP SCH (22:00)
[2023-06-04] MEDS: BUDESONIDE/FORMETEROL FUMARATE 80/4.5 mcg INHALER IH SCH (23:02)
[2023-06-04] MEDS: methylPREDNISolone NA SUCC 40 MG/1 ML VIAL IVPUSH SCH (23:02)
[2023-06-05 09:24] LABS: HEMATOCRIT 24.9 % (35.4-49); HEMOGLOBIN 8.2 GM/dL (11.7-16.9); MCH 28.5 pg (25.7-33.7); MEAN CELL VOLUME 86.4 fl (80-96); MEAN PLT VOLUME 9.1 fl (7.5-11.1); PLATELET COUNT 142 10^3/uL (134-434); RBC 2.88 M/mm3 (4.00-5.60); RDW 17.7 % (11.9-15.9); WHITE BLOOD COUNT 5.9 K/mm3 (4.0-10.0)
[2023-06-05] MEDS: EPOETIN ALFA-EPBX 10,000 UNIT/ML VIAL IVPUSH ONE (09:33)
[2023-06-05 09:53] LABS: POTASSIUM 3.8 mmol/L (3.5-5.1)
[2023-06-05 09:55] LABS: CALCIUM 7.2 mg/dL (8.5-10.1)
[2023-06-05 09:56] LABS: BLOOD UREA NITROGEN 35.3 mg/dL (7-18)
[2023-06-05 10:01] LABS: BILIRUBIN,TOTAL 0.4 mg/dL (0.2-1); TOT PROT 4.8 g/dl (6.4-8.2)
[2023-06-05] MEDS: MEROPENEM 500 MG in DEXTROSE 5%-WATER 100 ML IVPB SCH (10:10)
[2023-06-05] MEDS: metoPROLOL SUCCINATE 25 MG TAB.SR.24H (FP) PO SCH (10:11)
[2023-06-05] MEDS: ZINC OXIDE 20% TOPICAL OINTMENT 30 GM TUBE TP SCH (10:12)
[2023-06-05] MEDS ORDERED: INSULIN (NOVOLOG) ASPART 100 UNITS/ML 10ML VIAL ONE ×2 (13:42→20:51)
[2023-06-06] MEDS ORDERED: INSULIN (NOVOLOG) ASPART 100 UNITS/ML 10ML VIAL ONE ×2 (05:31→20:55)
[2023-06-06 09:38] LABS: HEMATOCRIT 29.6 % (35.4-49); HEMOGLOBIN 9.9 GM/dL (11.7-16.9); MCHC 33.6 g/dl (32.0-35.9); MEAN CELL VOLUME 86.4 fl (80-96); MEAN PLT VOLUME 9.3 fl (7.5-11.1); PLATELET COUNT 198 10^3/uL (134-434); RBC 3.42 M/mm3 (4.00-5.60); RDW 17.6 % (11.9-15.9); WHITE BLOOD COUNT 7.9 K/mm3 (4.0-10.0)
[2023-06-06 09:42] LABS: POTASSIUM 4.1 mmol/L (3.5-5.1)
[2023-06-06 09:48] LABS: BLOOD UREA NITROGEN 21.3 mg/dL (7-18); CALCIUM 7.9 mg/dL (8.5-10.1)
[2023-06-06 09:51] LABS: CREATININE 3.9 mg/dL (0.55-1.3)
[2023-06-06 10:21] LABS: ANISOCYTOSIS 1+; MACROCYTOSIS 0
[2023-06-06] MEDS: HEPARIN NA (PORCINE) 5,000 UNITS/ML 1ML VIAL SQ SCH (14:58)
[2023-06-06] MEDS: BACITRACIN ZINC 15 GM TUBE TOPICAL OINTMENT TP SCH (14:59)
[2023-06-06] MEDS: ALBUTEROL SO4 0.083% IH SOL 2.5 MG/3 ML VIAL.NEB. NEB SCH (16:35)
[2023-06-06] MEDS ORDERED: MEROPENEM 1 GM in DEXTROSE 5%-WATER 100 ML IVPB SCH ×2 (18:45→22:00)
[2023-06-06] MEDS: MEROPENEM 1 GM in DEXTROSE 5%-WATER 100 ML IVPB SCH (19:00)
[2023-06-07] MEDS ORDERED: INSULIN (NOVOLOG) ASPART 100 UNITS/ML 10ML VIAL ONE ×4 (05:15→21:07)
[2023-06-07 09:38] LABS: HEMATOCRIT 27.3 % (35.4-49); MCH 29.1 pg (25.7-33.7); MCHC 33.1 g/dl (32.0-35.9); MEAN PLT VOLUME 9.2 fl (7.5-11.1); PLATELET COUNT 187 10^3/uL (134-434); RDW 17.8 % (11.9-15.9); WHITE BLOOD COUNT 6.8 K/mm3 (4.0-10.0)
[2023-06-07 09:58] LABS: POTASSIUM 4.3 mmol/L (3.5-5.1)
[2023-06-07 10:00] LABS: BLOOD UREA NITROGEN 29.1 mg/dL (7-18)
[2023-06-07 10:03] LABS: CREATININE 4.2 mg/dL (0.55-1.3)
[2023-06-07 10:42] LABS: ANISOCYTOSIS 0; MACROCYTOSIS 0
[2023-06-07] MEDS: ACETAMINOPHEN 325 MG TABLET (FP) PO PRN (21:55)
[2023-06-08 08:45] LABS: HEMATOCRIT 26.4 % (35.4-49); HEMOGLOBIN 8.8 GM/dL (11.7-16.9); MCH 29.2 pg (25.7-33.7); MCHC 33.4 g/dl (32.0-35.9); MEAN CELL VOLUME 87.4 fl (80-96); MEAN PLT VOLUME 8.4 fl (7.5-11.1); PLATELET COUNT 190 10^3/uL (134-434); RBC 3.03 M/mm3 (4.00-5.60); RDW 18.3 % (11.9-15.9); WHITE BLOOD COUNT 5.4 K/mm3 (4.0-10.0)
[2023-06-08 09:03] LABS: POTASSIUM 4.2 mmol/L (3.5-5.1)
[2023-06-08 09:06] LABS: ALBUMIN 1.7 g/dl (3.4-5.0); BLOOD UREA NITROGEN 31.2 mg/dL (7-18); CALCIUM 7.9 mg/dL (8.5-10.1)
[2023-06-08 09:07] LABS: MAGNESIUM 1.7 mg/dL (1.8-2.4)
[2023-06-08 09:09] LABS: CREATININE 4.5 mg/dL (0.55-1.3)
[2023-06-08 09:12] LABS: BILIRUBIN,TOTAL 0.6 mg/dL (0.2-1); TOT PROT 4.6 g/dl (6.4-8.2)
[2023-06-08 10:17] LABS: ANISOCYTOSIS 1+; MACROCYTOSIS 0
[2023-06-08] MEDS ORDERED: INSULIN (NOVOLOG) ASPART 100 UNITS/ML 10ML VIAL ONE (11:11)
[2023-06-09 09:03] LABS: HEMATOCRIT 28.8 % (35.4-49); HEMOGLOBIN 9.6 GM/dL (11.7-16.9); MCH 29.2 pg (25.7-33.7); MCHC 33.3 g/dl (32.0-35.9); MEAN CELL VOLUME 87.6 fl (80-96); MEAN PLT VOLUME 8.6 fl (7.5-11.1); PLATELET COUNT 213 10^3/uL (134-434); RBC 3.29 M/mm3 (4.00-5.60); RDW 18.1 % (11.9-15.9); WHITE BLOOD COUNT 5.1 K/mm3 (4.0-10.0)
[2023-06-09 09:26] LABS: POTASSIUM 4.4 mmol/L (3.5-5.1)
[2023-06-09 09:33] LABS: CALCIUM 8.2 mg/dL (8.5-10.1)
[2023-06-09 09:34] LABS: ALBUMIN 1.8 g/dl (3.4-5.0); MAGNESIUM 1.8 mg/dL (1.8-2.4)
[2023-06-09 09:37] LABS: CREATININE 4.4 mg/dL (0.55-1.3)
[2023-06-09 09:38] LABS: BILIRUBIN,TOTAL 0.4 mg/dL (0.2-1)
[2023-06-09 12:21] LABS: ANISOCYTOSIS 0; MACROCYTOSIS 0
[2023-06-09] MEDS ORDERED: INSULIN (NOVOLOG) ASPART 100 UNITS/ML 10ML VIAL ONE ×2 (17:36→17:43)
[2023-06-09] MEDS: PANTOPRAZOLE 40 MG TABLET PO SCH (22:14)
[2023-06-10 08:00] LABS: HEMATOCRIT 26.7 % (35.4-49); HEMOGLOBIN 8.9 GM/dL (11.7-16.9); MCH 29.4 pg (25.7-33.7); MCHC 33.5 g/dl (32.0-35.9); MEAN PLT VOLUME 8.5 fl (7.5-11.1); PLATELET COUNT 188 10^3/uL (134-434); RBC 3.03 M/mm3 (4.00-5.60); RDW 18.1 % (11.9-15.9); WHITE BLOOD COUNT 5.6 K/mm3 (4.0-10.0)
[2023-06-10 08:29] LABS: ALBUMIN 1.7 g/dl (3.4-5.0); BLOOD UREA NITROGEN 35.2 mg/dL (7-18); MAGNESIUM 1.6 mg/dL (1.8-2.4)
[2023-06-10 08:34] LABS: BILIRUBIN,TOTAL 0.6 mg/dL (0.2-1); TOT PROT 4.7 g/dl (6.4-8.2)
[2023-06-10] MEDS: ERTAPENEM SODIUM 0.5 GM in SODIUM CHLORIDE 50 ML IVPB SCH (09:29)
[2023-06-10 14:58] VITALS: BP 127/73; PULSE 93; RESP 20; TEMP 97.2
[2023-06-10] MEDS: MAGNESIUM OXIDE 400 MG TABLET (FP) PO ONE (16:56)
[2023-06-10] MEDS: ENOXAPARIN NA (PORCINE) 120 MG/0.8 ML DISP.SYRIN SQ SCH (16:56)
[2023-06-10] MEDS ORDERED: INSULIN (NOVOLOG) ASPART 100 UNITS/ML 10ML VIAL ONE ×2 (17:11→20:48)
[2023-06-11 16:11] LABS: IG A QN SERUM. 227 mg/dL (61-437)
[2023-06-11 17:12] LABS: FREE KAPPA,SERUM 31.4 mg/L (3.3-19.4)
[2023-06-11 18:11] LABS: IG A QN SERUM. 237 mg/dL (61-437)
[2023-06-12 20:08] LABS: IMMUNOGLOBULIN D < 1.30 mg/dL (<14.11)
== END 2023-06-10 21:49 | DRG 871 ==
LOC: JER 08:17 → JERBED 10:31 → JICU 13:41 → J8W 06-04 17:03
PROVIDERS: ADMIT Internal Medicine Pulmonary Disease; ATTEND Nurse Practitioner Family
PROC: 30233N1 Transfusion of Nonautologous Red Blood Cells into Peripheral Vein, Percutaneous Approach (ICD-10-PCS; 2023-05-30)
PROC: 03HY32Z Insertion of Monitoring Device into Upper Artery, Percutaneous Approach (ICD-10-PCS; principal; 2023-05-31)
PROC: 5A1D70Z Performance of Urinary Filtration, Intermittent, Less than 6 Hours Per Day (ICD-10-PCS; 2023-06-03)
PROC: 05HY33Z Insertion of Infusion Device into Upper Vein, Percutaneous Approach (ICD-10-PCS; 2023-06-09)
DX: A41.9 Sepsis, unspecified organism (principal); E11.10 Type 2 diabetes mellitus with ketoacidosis without coma; G93.41 Metabolic encephalopathy; J96.01 Acute respiratory failure with hypoxia; R65.21 Severe sepsis with septic shock; C96.9 Malignant neoplasm of lymphoid, hematopoietic and related tissue, unspecified; L97.909 Non-pressure chronic ulcer of unspecified part of unspecified lower leg with unspecified severity; I48.20 Chronic atrial fibrillation, unspecified; L03.115 Cellulitis of right lower limb; L03.116 Cellulitis of left lower limb; K92.0 Hematemesis; K92.2 Gastrointestinal hemorrhage, unspecified; N17.9 Acute kidney failure, unspecified; Z68.41 Body mass index [BMI] 40.0-44.9, adult; C90.00 Multiple myeloma not having achieved remission; I11.0 Hypertensive heart disease with heart failure; Z99.2 Dependence on renal dialysis; E11.9 Type 2 diabetes mellitus without complications; D64.9 Anemia, unspecified; E87.5 Hyperkalemia; E66.01 Morbid (severe) obesity due to excess calories; I48.91 Unspecified atrial fibrillation; E83.52 Hypercalcemia; R31.0 Gross hematuria
CPT/HCPCS: 0241U-QW; 36415; 36430; 36569; 36600; 71045-TC-FY; 74174-TC; 76775-TC; 76856-TC; 80048; 80053; 81003; 81015; 82010; 82150; 82272; 82378; 82784; 82785; 82803; 82962; 83036; 83605; 83615; 83690; 83735; 83880; 83883; 84100; 84153; 84155; 84165; 84484; 85025; 85027; 85384; 85610; 85730; 86140; 86301; 86334; 86850; 86900; 86901; 86922; 87040; 87045; 87046; 87076; 87086; 87186; 87340; 87635; 93005; 93010; 93306-TC; 94640; 94660; 97116-GP; 97161-GP; 99291; 99292; G0480; J1644; J3490; P9047; P9058; Q5106